=== PATIENT | female | born 1965 | race Caucasian/White ===

== ENCOUNTER 2017-01-08 22:38 | Inpatient (IN) | payer MEDICAID ==
[2017-01-08] MEDS ORDERED: Sodium Chloride 0.9% 1,000 ML IV ONE (23:38)
[2017-01-09] MEDS ORDERED: Sodium Chloride 0.9% 1,000 ML ONE ×2 (00:19→01:18)
--- NOTE | 2017-01-09 00:26 | CT ---
EXAM: CT Head Without Intravenous Contrast CLINICAL HISTORY: 51 years old, female; Injury or trauma; Fall; Initial encounter; Abrasion; Head, generalized; Additional info: Fell, hit head TECHNIQUE: Axial computed tomography images of the head/brain without intravenous contrast. All CT scans at this facility use one or more dose reduction techniques, viz.: automated exposure control; ma/kV adjustment per patient size (including targeted exams where dose is matched to indication; i.e. head); or iterative reconstruction technique. COMPARISON: No relevant prior studies available. FINDINGS: Brain: Mild atrophy. No intracranial hemorrhage. No mass. No edema. Ventricles: Mildly dilated out of proportion to sulci. Bones/joints: No acute fracture. Degenerative changes of temporomandibular joints. Soft tissues: Unremarkable. Sinuses: No acute sinusitis. Mastoid air cells: No mastoid effusion. Orbits: Unremarkable as visualized. IMPRESSION: 1. No intracranial hemorrhage. 2. Mild hydrocephalus vs central atrophy, uncertain chronicity. Compare with prior examinations if available. 3. Incidental/non-acute findings are described above.
[2017-01-09 00:31] LABS: BASO % 0.2 % (0.0-2.0); EOS % 0.1 % (0.0-4.0); HEMATOCRIT 26.7 % (34.0-47.0); LYMPH # 1.3 K/uL (1.0-4.3); LYMPH % 14.8 % (20.0-40.0); MEAN CELL VOLUME 86.7 fL (81.0-99.0); MEAN CORPUSCULAR HEMOGLOBIN 28.1 pg (27.0-31.0); MEAN CORPUSCULAR HGB CONC 32.4 g/dL (33.0-37.0); MEAN PLATELET VOLUME 7.4 fL (7.2-11.7); MONO # 0.7 K/uL (0.0-0.8); MONO % 8.3 % (0.0-10.0); WHITE BLOOD COUNT 8.5 K/uL (4.8-10.8)
[2017-01-09 00:34] LABS: CHLORIDE 105 mmol/L (98-107); POTASSIUM 4.7 mmol/L (3.6-5.2); SODIUM 132 mmol/L (132-148)
[2017-01-09 00:36] LABS: ALB/GLOB RATIO 0.9 (1.0-2.1); AST/SGOT 13 U/L (14-36); BILIRUBIN,TOTAL 0.6 mg/dL (0.2-1.3); CARBON DIOXIDE 14 mmol/L (22-30); GFR AFRICAN-AMERICAN 57; TOTAL PROTEIN 6.9 g/dL (6.3-8.3)
[2017-01-09 00:38] LABS: ALKALINE PHOSPHATASE 150 U/L (38-126); ALT/SGPT 23 U/L (9-52); BLOOD UREA NITROGEN 34 mg/dL (7-17); CALCIUM 8.8 mg/dl (8.6-10.4)
[2017-01-09 00:49] LABS: VENOUS BLOOD GAS BASE EXCESS -8.4 mmol/L (0.0-2.0); VENOUS BLOOD GAS PCO2 39 mmHg (40-60); VENOUS BLOOD PH 7.27 (7.32-7.43)
--- NOTE | 2017-01-09 00:51 | C.PDOC ---
History Of Present Illness Pt fell in the [facility] at [facility] striking her head. - HPI Time Seen by Provider: 01/08/17 23:26 Chief Complaint (Nursing): Trauma History Per: Patient, EMS, Other ([facility] transfer papers) Injury Occurred (Timing): Just Before Arrival Location Of Injury: Posterior: Head Severity: Moderate Additional History Per: Prior Records Past Medical History Reviewed: Historical Data, Nursing Documentation, Vital Signs Vital Signs: Last Vital Signs Temp 98.1 F 01/08/17 22:59 Pulse 85 01/08/17 22:59 Resp 18 01/08/17 22:59 BP 149/74 01/08/17 22:59 Pulse Ox 97 01/09/17 00:52 - Medical History PMH: Anemia, Diabetes, HTN, Hyperlipidemia, Seizures Family History: States: Unknown Family Hx - Social History Hx Alcohol Use: No Hx Substance Use: No Review Of Systems Constitutional: Negative for: Fever Cardiovascular: Negative for: Chest Pain Respiratory: Positive for: Cough. Negative for: Shortness of Breath Gastrointestinal: Positive for: Abdominal Pain (suprapubic). Negative for: Vomiting Genitourinary: Negative for: Dysuria Musculoskeletal: Negative for: Neck Pain, Back Pain Skin: Negative for: Rash Neurological: Positive for: Headache. Negative for: Weakness, Numbness Physical Exam - Physical Exam Appears: No Acute Distress, Chronically Ill Skin: Warm, Dry Head: Other (Occipital contusion) Eye(s): bilateral: PERRL, EOMI Neck: Normal ROM, No Midline Cervical Tenderness, No Step Off Deformity, Supple Chest: Symmetrical, No Deformity Cardiovascular: Rhythm Regular Respiratory: Normal Breath Sounds, No Accessory Muscle Use Gastrointestinal/Abdominal: Soft, Tenderness (mild suprapubic), No Guarding, No Rebound Back: No CVA Tenderness, No Vertebral Tenderness Extremity: Normal ROM Neurological/Psych: Oriented x3, Normal Motor, Normal Sensation ED Course And Treatment - Laboratory Results Result Diagrams: 01/09/17 00:19 01/09/17 00:19 Lab Interpretation: Abnormal O2 Sat by Pulse Oximetry: 97 Pulse Ox Interpretation: Normal - Radiology CXR: Interpreted by Me, Viewed By Me CXR Interpretation: Yes: No Acute Disease - CT Scan/US CT head Other Rad Studies (CT/US): Read By Radiologist, Radiology Report Reviewed CT/US Interpretation: IMPRESSION: 1. No intracranial hemorrhage. 2. Mild hydrocephalus vs central atrophy, uncertain chronicity. Compare with. prior examinations if available. 3. Incidental/non-acute findings are described above. Progress - Interventions Interventions:: Observation, Intravenous fluid - Medications Administered Intravenous: Other (Insulin) - Data Reviewed Data Reviewed: Lab, Diagnostic imaging, Old records - Critical Care Citical Care: Excluding Proc Time Critical Care Time: 45 minutes - Continuity of Care Discussed patient case with:: Patient, ED Nurse Disposition - Disposition Disposition Time: 01:00 Condition: GUARDED Forms: [employer] (Estonian) - Clinical Impression Clinical Impression: Fall at [facility], Closed head injury, Hyperglycemia Physician Patient Turnover Patient Signed Over To: Cy Stokes Handoff Comments: to f/up U/A, and repeat VBG after IV fluids and insulin.
[2017-01-09 00:53] LABS: GLUCOSE,RANDOM 564 mg/dL (65-105)
[2017-01-09] MEDS ORDERED: (Novolin R) Insulin Human Regular 100 units/ml vial IV STA ×2 (00:53→03:12)
[2017-01-09] MEDS ORDERED: (Novolin R) Insulin Human Regular 100 units/ml vial ONE ×2 (01:00→03:17)
[2017-01-09] MEDS ORDERED: Sodium Chloride 0.9% 1,000 ML IV ONE ×2 (01:20→01:25)
[2017-01-09 02:56] LABS: ABG ALLEN TEST POSITIVE; DRAW SITE LT RADIAL
[2017-01-09] MEDS ORDERED: Sodium Chloride 0.45% 500ml 1,000 ML IV ONE (03:06)
[2017-01-09 03:10] LABS: RBC URINE 1 /hpf (0-3); URINE BACTERIA RARE (<OCC); URINE BILIRUBIN NEGATIVE (NEGATIVE); URINE COLOR Straw (YELLOW); URINE GLUCOSE (UA) 3+ mg/dL (Normal); URINE KETONE NEGATIVE (NEGATIVE); URINE LEUKOCYTE ESTERASE 1+ Leu/uL (Negative); URINE PROTEIN NEGATIVE (NEGATIVE); URINE UROBILINOGEN NORMAL mg/dL (0.2-1.0); WBC URINE 20 /hpf (0-5)
[2017-01-09] MEDS ORDERED: Insulin Human Regular 100 UNIT in Sodium Chloride 0.9% 99 ML IV SCH ×8 (03:15→22:00)
[2017-01-09] MEDS ORDERED: Sodium Chloride 0.45% 1,000 ML IV ONE (03:16)
[2017-01-09 03:36] LABS: CHLORIDE 107 mmol/L (98-107)
[2017-01-09 03:37] LABS: POTASSIUM 4.2 mmol/L (3.6-5.2); SODIUM 134 mmol/L (132-148)
[2017-01-09 03:38] LABS: URINE BLOOD NEGATIVE (NEGATIVE)
[2017-01-09 03:39] LABS: GFR AFRICAN-AMERICAN > 60
[2017-01-09 03:40] LABS: BLOOD UREA NITROGEN 30 mg/dL (7-17); CALCIUM 8.5 mg/dl (8.6-10.4)
[2017-01-09] MEDS ORDERED: Ciprofloxacin 400mg/200ml D5W 400 MG/200 ML BAG IVPB STA (03:41)
[2017-01-09 03:48] LABS: CARBON DIOXIDE 10 mmol/L (22-30); GLUCOSE,RANDOM 477 mg/dL (65-105)
[2017-01-09] MEDS ORDERED: Ciprofloxacin 400mg/200ml D5W 400 MG/200 ML BAG IVPB ONE (04:38)
--- NOTE | 2017-01-09 04:59 | CP.PCM.HP ---
History of Present Illness - History of Present Illness History of Present Illness: 51 yo F with a PMHx of DM, Anemia, HTN, Hyperlipidemia, Seizures, was brought in from [facility] due to fall in shower with closed head injury and sprained ankle. In ED patient was found to be in DKA. Patient is a very poor historian, baseline function unknown. She was very lethargic and kept closing her eyes every few seconds. Possible delerium secondary to DKA with waxing and waning mentation. ROS and history could not be obtained due to patients mental status. No prior records in chart. Present on Admission - Present on Admission Any Indicators Present on Admission: No Review of Systems - Review of Systems Systems not reviewed;Unavailable: Altered Mental Status Past Patient History - Past Social History Smoking Status: Never Smoked - CARDIAC Hx Hypertension: Yes - NEUROLOGICAL Hx Seizures: Yes - ENDOCRINE/METABOLIC Hx Diabetes Mellitus Type 1: Yes - HEMATOLOGICAL/ONCOLOGICAL Hx Anemia: Yes - PSYCHIATRIC Hx Substance Use: No - SURGICAL HISTORY Hx Surgeries: (UNKNOWN) - ANESTHESIA Hx Anesthesia: No Meds Allergies/Adverse Reactions: Allergies Allergy/AdvReac Type Severity Reaction Status Date / Time No Known Allergies Allergy Unverified 01/08/17 23:13 Physical Exam - Constitutional Appears: Unkempt, Confused - Head Exam Head Exam: ATRAUMATIC, NORMAL INSPECTION - Eye Exam Eye Exam: EOMI - ENT Exam ENT Exam: Mucous Membranes Moist - Respiratory Exam Respiratory Exam: Clear to Auscultation Bilateral, NORMAL BREATHING PATTERN. absent: Rales, Rhonchi, Wheezes - Cardiovascular Exam Cardiovascular Exam: REGULAR RHYTHM, +S1, +S2. absent: Bradycardia, Tachycardia , Systolic Murmur - GI/Abdominal Exam GI & Abdominal Exam: Normal Bowel Sounds, Soft. absent: Tenderness - Rectal Exam Rectal Exam: Deferred - Extremities Exam Extremities exam: Positive for: joint swelling, pedal pulses present Additional comments: swelling noted on lateral aspect of right ankle; no ecchymosis - Neurological Exam Neurological exam: Alert, Altered - Skin Skin Exam: Dry, Intact, Normal Color, Warm Results - Vital Signs Recent Vital Signs: Last Vital Signs Temp 98.7 F 01/09/17 03:04 Pulse 96 H 01/09/17 03:04 Resp 20 01/09/17 03:04 BP 156/57 H 01/09/17 03:04 Pulse Ox 98 01/09/17 03:04 - Labs Result Diagrams: 01/09/17 00:19 01/09/17 01:49 Labs: Laboratory Results - last 24 hr 01/08/17 01/08/17 01/08/17 00:30 23:17 23:39 WBC RBC Hgb Hct MCV MCH MCHC RDW Plt Count MPV Neut % (Auto) Lymph % (Auto) [place] % (Auto) Eos % (Auto) Baso % (Auto) Neut # Lymph # [place] # Eos # Baso # Puncture Site pCO2 pO2 52 HCO3 ABG pH ABG Total CO2 ABG Base Excess ABG Hemoglobin Parminder Test VBG pH 7.27 L VBG pCO2 39 L VBG HCO3 17.9 VBG Total CO2 19.1 L VBG O2 Sat (Calc) 90.4 H VBG Base Excess -8.4 L VBG Potassium 4.7 Sodium 131.0 L Chloride 104.0 Glucose 602 H* Lactate 0.6 L Liter Flow Blood Gas Comments Glu 602 Crit Value Called To Allyson horowitz er Crit Value Called By Jonah villanueva Crit Value Read Back Y Blood Gas Notified Time 48 Potassium Carbon Dioxide Anion Gap BUN Creatinine Est GFR ( Amer) Est GFR (Non-Af Amer) POC Glucose (mg/dL) 485 H* Random Glucose Calcium Total Bilirubin AST ALT Alkaline Phosphatase Total Protein Albumin Globulin Albumin/Globulin Ratio Venous Blood Potassium 4.7 Urine Color Straw Urine Clarity Clear Urine pH 5.0 Ur Specific [place] 1.006 Urine Protein Negative Urine Glucose (UA) 3+ H Urine Ketones Negative Urine Blood Negative Urine Nitrate Negative Urine Bilirubin Negative Urine Urobilinogen Normal Ur Leukocyte Esterase 1+ H Urine WBC (Auto) 20 H Urine RBC (Auto) 1 Urine Bacteria Rare Serum Ketones 01/09/17 01/09/17 01/09/17 00:19 00:19 01:36 WBC 8.5 RBC 3.08 L Hgb 8.7 L Hct 26.7 L MCV 86.7 MCH 28.1 MCHC 32.4 L RDW 17.0 H Plt Count 290 MPV 7.4 Neut % (Auto) 76.6 H Lymph % (Auto) 14.8 L [place] % (Auto) 8.3 Eos % (Auto) 0.1 Baso % (Auto) 0.2 Neut # 6.5 Lymph # 1.3 [place] # 0.7 Eos # 0.0 Baso # 0.0 Puncture Site pCO2 pO2 HCO3 ABG pH ABG Total CO2 ABG Base Excess ABG Hemoglobin Parminder Test VBG pH VBG pCO2 VBG HCO3 VBG Total CO2 VBG O2 Sat (Calc) VBG Base Excess VBG Potassium Sodium 132 Chloride 105 Glucose Lactate Liter Flow Blood Gas Comments Crit Value Called To Crit Value Called By Crit Value Read Back Blood Gas Notified Time Potassium 4.7 Carbon Dioxide 14 L Anion Gap 18 BUN 34 H Creatinine 1.2 Est GFR ( Amer) 57 Est GFR (Non-Af Amer) 47 POC Glucose (mg/dL) 443 H* Random Glucose 564 H* Calcium 8.8 Total Bilirubin 0.6 AST 13 L ALT 23 Alkaline Phosphatase 150 H Total Protein 6.9 Albumin 3.2 L Globulin 3.7 Albumin/Globulin Ratio 0.9 L Venous Blood Potassium Urine Color Urine Clarity Urine pH Ur Specific [place] Urine Protein Urine Glucose (UA) Urine Ketones Urine Blood Urine Nitrate Urine Bilirubin Urine Urobilinogen Ur Leukocyte Esterase Urine WBC (Auto) Urine RBC (Auto) Urine Bacteria Serum Ketones Moderate 01/09/17 01/09/17 01/09/17 01:49 02:40 03:06 WBC RBC Hgb Hct MCV MCH MCHC RDW Plt Count MPV Neut % (Auto) Lymph % (Auto) [place] % (Auto) Eos % (Auto) Baso % (Auto) Neut # Lymph # [place] # Eos # Baso # Puncture Site Lt radial pCO2 10 L* pO2 162 H HCO3 8.8 L* ABG pH 7.22 L ABG Total CO2 4.4 L ABG Base Excess -20.7 L ABG Hemoglobin < 3.0 L Parminder Test Positive VBG pH VBG pCO2 VBG HCO3 VBG Total CO2 VBG O2 Sat (Calc) VBG Base Excess VBG Potassium Sodium 134 Chloride 107 Glucose Lactate Liter Flow 21.0 Blood Gas Comments Pco2 10 Crit Value Called To Allyson horowitz er Crit Value Called By Jonah villanueva Crit Value Read Back Y Blood Gas Notified Time 255 Potassium 4.2 Carbon Dioxide 10 L* D Anion Gap 21 H BUN 30 H Creatinine 1.0 Est GFR ( Amer) > 60 Est GFR (Non-Af Amer) 58 POC Glucose (mg/dL) 459 H* Random Glucose 477 H* Calcium 8.5 L Total Bilirubin AST ALT Alkaline Phosphatase Total Protein Albumin Globulin Albumin/Globulin Ratio Venous Blood Potassium Urine Color Urine Clarity Urine pH Ur Specific [place] Urine Protein Urine Glucose (UA) Urine Ketones Urine Blood Urine Nitrate Urine Bilirubin Urine Urobilinogen Ur Leukocyte Esterase Urine WBC (Auto) Urine RBC (Auto) Urine Bacteria Serum Ketones 01/09/17 04:13 WBC RBC Hgb Hct MCV MCH MCHC RDW Plt Count MPV Neut % (Auto) Lymph % (Auto) [place] % (Auto) Eos % (Auto) Baso % (Auto) Neut # Lymph # [place] # Eos # Baso # Puncture Site pCO2 pO2 HCO3 ABG pH ABG Total CO2 ABG Base Excess ABG Hemoglobin Parminder Test VBG pH VBG pCO2 VBG HCO3 VBG Total CO2 VBG O2 Sat (Calc) VBG Base Excess VBG Potassium Sodium Chloride Glucose Lactate Liter Flow Blood Gas Comments Crit Value Called To Crit Value Called By Crit Value Read Back Blood Gas Notified Time Potassium Carbon Dioxide Anion Gap BUN Creatinine Est GFR ( Amer) Est GFR (Non-Af Amer) POC Glucose (mg/dL) 391 H Random Glucose Calcium Total Bilirubin AST ALT Alkaline Phosphatase Total Protein Albumin Globulin Albumin/Globulin Ratio Venous Blood Potassium Urine Color Urine Clarity Urine pH Ur Specific [place] Urine Protein Urine Glucose (UA) Urine Ketones Urine Blood Urine Nitrate Urine Bilirubin Urine Urobilinogen Ur Leukocyte Esterase Urine WBC (Auto) Urine RBC (Auto) Urine Bacteria Serum Ketones Assessment & Plan (1) DKA (diabetic ketoacidosis) Assessment and Plan: glucose 602 on admission; anion gap 17; pH 7.22; HCO3 8.8; precipitant currently unknown In ED Novolin 16u, Potassium 20 meq, Normal Saline 2L given Insulin drip started Half NS at 500 cc/hr started Ciprofloxacin 400mg ivpb once; F/U urine culture accucheck keep NPO until anion gap and glucose trend toward normal Status: Acute (2) Closed head injury Assessment and Plan: CT Head shows No intracranial hemorrhage Status: Acute (3) Prophylactic measure Assessment and Plan: GI: not indicated DVT: SCDs, will hold off on anticoagulation for now due to head trauma Status: Acute
--- NOTE | 2017-01-09 05:14 | CP.PCM.CON ---
History of Present Illness - History of Present Illness History of Present Illness: CCM 51 yo female [facility] with hx DM /HTN/HLD /Seizures /Anemia sent to ED after fall with head trauma. Pt found to be in DKA in ED and started on IV fluid and insulin. Pt was admitting weakness. Denied n /v /d /fever /sob/urinary sx. Feeling sl. better when seen in ED. ROS- as noted All- NKDA social- no tob/ etoh/ drugs Meds- reviewed FH- Unknown PE T- 94 P- 94 R-22 BP-153/79 Awake, responisve, nad Perrl Neck- no jvdlugns- bilat bs heawrt-rr aBd- bs+, sfot, nontender Ext- no edema Neuro- nonfocal Labs, [id number] A&P DKA DM Anemia HTN Seizures Anemia RA ? Thyroid Dz Admit to ICU Cont IV fluid cont IV insulin drip maintain optimal lyts CBG monitoring F/u BMP /labs DVT prophylaxis Past Patient History - Past Social History Smoking Status: Never Smoked - CARDIAC Hx Hypertension: Yes - NEUROLOGICAL Hx Seizures: Yes - ENDOCRINE/METABOLIC Hx Diabetes Mellitus Type 1: Yes - HEMATOLOGICAL/ONCOLOGICAL Hx Anemia: Yes - PSYCHIATRIC Hx Substance Use: No - SURGICAL HISTORY Hx Surgeries: (UNKNOWN) - ANESTHESIA Hx Anesthesia: No Meds Allergies/Adverse Reactions: Allergies Allergy/AdvReac Type Severity Reaction Status Date / Time No Known Allergies Allergy Unverified 01/08/17 23:13 - Medications Medications: Current Medications Insulin Human Regular 100 unit (/ Sodium Chloride) 100 mls @ 6 mls/hr IV .[id number] ISAI Last Admin: 01/09/17 04:20 Dose: 6 mls/hr Ciprofloxacin (Cipro 400mg/200ml Dsw) 400 mg in 200 mls @ 133.333 mls/hr IVPB STAT STA Stop: 01/09/17 05:10 Results - Vital Signs Recent Vital Signs: Last Vital Signs Temp 98.3 F 01/09/17 04:56 Pulse 98 H 01/09/17 04:51 Resp 21 01/09/17 04:51 BP 153/79 H 01/09/17 04:51 Pulse Ox 100 01/09/17 04:51 - Labs Result Diagrams: 01/09/17 00:19 01/09/17 01:49 Labs: Laboratory Results - last 24 hr 01/08/17 01/08/17 01/08/17 00:30 23:17 23:39 WBC RBC Hgb Hct MCV MCH MCHC RDW Plt Count MPV Neut % (Auto) Lymph % (Auto) [place] % (Auto) Eos % (Auto) Baso % (Auto) Neut # Lymph # [place] # Eos # Baso # Puncture Site pCO2 pO2 52 HCO3 ABG pH ABG Total CO2 ABG Base Excess ABG Hemoglobin Parminder Test VBG pH 7.27 L VBG pCO2 39 L VBG HCO3 17.9 VBG Total CO2 19.1 L VBG O2 Sat (Calc) 90.4 H VBG Base Excess -8.4 L VBG Potassium 4.7 Sodium 131.0 L Chloride 104.0 Glucose 602 H* Lactate 0.6 L Liter Flow Blood Gas Comments Glu 602 Crit Value Called To Allyson horowitz er Crit Value Called By Jonah villanueva Crit Value Read Back Y Blood Gas Notified Time 48 Potassium Carbon Dioxide Anion Gap BUN Creatinine Est GFR ( Amer) Est GFR (Non-Af Amer) POC Glucose (mg/dL) 485 H* Random Glucose Calcium Total Bilirubin AST ALT Alkaline Phosphatase Total Protein Albumin Globulin Albumin/Globulin Ratio Venous Blood Potassium 4.7 Urine Color Straw Urine Clarity Clear Urine pH 5.0 Ur Specific [place] 1.006 Urine Protein Negative Urine Glucose (UA) 3+ H Urine Ketones Negative Urine Blood Negative Urine Nitrate Negative Urine Bilirubin Negative Urine Urobilinogen Normal Ur Leukocyte Esterase 1+ H Urine WBC (Auto) 20 H Urine RBC (Auto) 1 Urine Bacteria Rare Serum Ketones 01/09/17 01/09/17 01/09/17 00:19 00:19 01:36 WBC 8.5 RBC 3.08 L Hgb 8.7 L Hct 26.7 L MCV 86.7 MCH 28.1 MCHC 32.4 L RDW 17.0 H Plt Count 290 MPV 7.4 Neut % (Auto) 76.6 H Lymph % (Auto) 14.8 L [place] % (Auto) 8.3 Eos % (Auto) 0.1 Baso % (Auto) 0.2 Neut # 6.5 Lymph # 1.3 [place] # 0.7 Eos # 0.0 Baso # 0.0 Puncture Site pCO2 pO2 HCO3 ABG pH ABG Total CO2 ABG Base Excess ABG Hemoglobin Parminder Test VBG pH VBG pCO2 VBG HCO3 VBG Total CO2 VBG O2 Sat (Calc) VBG Base Excess VBG Potassium Sodium 132 Chloride 105 Glucose Lactate Liter Flow Blood Gas Comments Crit Value Called To Crit Value Called By Crit Value Read Back Blood Gas Notified Time Potassium 4.7 Carbon Dioxide 14 L Anion Gap 18 BUN 34 H Creatinine 1.2 Est GFR ( Amer) 57 Est GFR (Non-Af Amer) 47 POC Glucose (mg/dL) 443 H* Random Glucose 564 H* Calcium 8.8 Total Bilirubin 0.6 AST 13 L ALT 23 Alkaline Phosphatase 150 H Total Protein 6.9 Albumin 3.2 L Globulin 3.7 Albumin/Globulin Ratio 0.9 L Venous Blood Potassium Urine Color Urine Clarity Urine pH Ur Specific [place] Urine Protein Urine Glucose (UA) Urine Ketones Urine Blood Urine Nitrate Urine Bilirubin Urine Urobilinogen Ur Leukocyte Esterase Urine WBC (Auto) Urine RBC (Auto) Urine Bacteria Serum Ketones Moderate 01/09/17 01/09/17 01/09/17 01:49 02:40 03:06 WBC RBC Hgb Hct MCV MCH MCHC RDW Plt Count MPV Neut % (Auto) Lymph % (Auto) [place] % (Auto) Eos % (Auto) Baso % (Auto) Neut # Lymph # [place] # Eos # Baso # Puncture Site Lt radial pCO2 10 L* pO2 162 H HCO3 8.8 L* ABG pH 7.22 L ABG Total CO2 4.4 L ABG Base Excess -20.7 L ABG Hemoglobin < 3.0 L Parminder Test Positive VBG pH VBG pCO2 VBG HCO3 VBG Total CO2 VBG O2 Sat (Calc) VBG Base Excess VBG Potassium Sodium 134 Chloride 107 Glucose Lactate Liter Flow 21.0 Blood Gas Comments Pco2 10 Crit Value Called To Allyson horowitz er Crit Value Called By Jonah villanueva Crit Value Read Back Y Blood Gas Notified Time 255 Potassium 4.2 Carbon Dioxide 10 L* D Anion Gap 21 H BUN 30 H Creatinine 1.0 Est GFR ( Amer) > 60 Est GFR (Non-Af Amer) 58 POC Glucose (mg/dL) 459 H* Random Glucose 477 H* Calcium 8.5 L Total Bilirubin AST ALT Alkaline Phosphatase Total Protein Albumin Globulin Albumin/Globulin Ratio Venous Blood Potassium Urine Color Urine Clarity Urine pH Ur Specific [place] Urine Protein Urine Glucose (UA) Urine Ketones Urine Blood Urine Nitrate Urine Bilirubin Urine Urobilinogen Ur Leukocyte Esterase Urine WBC (Auto) Urine RBC (Auto) Urine Bacteria Serum Ketones 01/09/17 01/09/17 04:13 04:55 WBC RBC Hgb Hct MCV MCH MCHC RDW Plt Count MPV Neut % (Auto) Lymph % (Auto) [place] % (Auto) Eos % (Auto) Baso % (Auto) Neut # Lymph # [place] # Eos # Baso # Puncture Site pCO2 pO2 HCO3 ABG pH ABG Total CO2 ABG Base Excess ABG Hemoglobin Parminder Test VBG pH VBG pCO2 VBG HCO3 VBG Total CO2 VBG O2 Sat (Calc) VBG Base Excess VBG Potassium Sodium Chloride Glucose Lactate Liter Flow Blood Gas Comments Crit Value Called To Crit Value Called By Crit Value Read Back Blood Gas Notified Time Potassium Carbon Dioxide Anion Gap BUN Creatinine Est GFR ( Amer) Est GFR (Non-Af Amer) POC Glucose (mg/dL) 391 H 326 H Random Glucose Calcium Total Bilirubin AST ALT Alkaline Phosphatase Total Protein Albumin Globulin Albumin/Globulin Ratio Venous Blood Potassium Urine Color Urine Clarity Urine pH Ur Specific [place] Urine Protein Urine Glucose (UA) Urine Ketones Urine Blood Urine Nitrate Urine Bilirubin Urine Urobilinogen Ur Leukocyte Esterase Urine WBC (Auto) Urine RBC (Auto) Urine Bacteria Serum Ketones
[2017-01-09] MEDS ORDERED: Sodium Chloride 0.45% 1,000 ML IV SCH (05:30)
[2017-01-09] MEDS ORDERED: Dextrose 5%/0.45% NS 1,000 ML IV SCH (06:30)
[2017-01-09 07:43] LABS: BASO % 0.3 % (0.0-2.0); EOS % 0.1 % (0.0-4.0); HEMATOCRIT 28.4 % (34.0-47.0); LYMPH # 1.4 K/uL (1.0-4.3); LYMPH % 12.3 % (20.0-40.0); MEAN CELL VOLUME 85.5 fL (81.0-99.0); MEAN CORPUSCULAR HEMOGLOBIN 27.9 pg (27.0-31.0); MEAN CORPUSCULAR HGB CONC 32.7 g/dL (33.0-37.0); MEAN PLATELET VOLUME 7.6 fL (7.2-11.7); MONO # 0.7 K/uL (0.0-0.8); MONO % 6.1 % (0.0-10.0); RED CELL DISTRIBUTION WIDTH 16.6 % (11.5-14.5); WHITE BLOOD COUNT 11.1 K/uL (4.8-10.8)
[2017-01-09 08:15] LABS: ALB/GLOB RATIO 0.9 (1.0-2.1); ALKALINE PHOSPHATASE 124 U/L (38-126); ALT/SGPT 15 U/L (9-52); AST/SGOT 16 U/L (14-36); BILIRUBIN,TOTAL 0.5 mg/dL (0.2-1.3); BLOOD UREA NITROGEN 27 mg/dL (7-17); CALCIUM 9.1 mg/dl (8.6-10.4); CARBON DIOXIDE 13 mmol/L (22-30); CHLORIDE 109 mmol/L (98-107); GFR AFRICAN-AMERICAN > 60; GLUCOSE,RANDOM 99 mg/dL (65-105); POTASSIUM 3.2 mmol/L (3.6-5.2); SODIUM 135 mmol/L (132-148); TOTAL PROTEIN 6.6 g/dL (6.3-8.3)
--- NOTE | 2017-01-09 08:25 | RAD ---
PROCEDURE: CHEST RADIOGRAPH, 1 VIEW HISTORY: Cough COMPARISON: None available. FINDINGS: LUNGS: Mild venous congestion. Upper lobe granulomatous changes. Mild nodularity at the lateral aspect of the left lung base may represent confluence of shadows with ribs and vessels. PLEURA: No pneumothorax or pleural fluid seen. CARDIOVASCULAR: Normal. OSSEOUS STRUCTURES: Deformity of the left proximal humerus. Clinical correlation. VISUALIZED UPPER ABDOMEN: Normal. OTHER FINDINGS: None. IMPRESSION: Mild venous congestion. Upper lobe granulomatous changes. Mild nodularity at the lateral aspect of the left lung base may represent confluence of shadows with ribs and vessels.
[2017-01-09] MEDS ORDERED: Potassium Chloride 20 mEq ER Tab PO SCH (11:00)
[2017-01-09] MEDS: Sodium Chloride 0.9% 1,000 ML IV SCH ×2 (11:25→13:15)
--- NOTE | 2017-01-09 14:14 | RAD ---
PROCEDURE: Left Hand Radiographs. HISTORY: s/p fall. Hx of RA COMPARISON: None. FINDINGS: BONES: Marked juxta-articular osteopenia. Multiple subcortical cyst. Metacarpal head erosions 2nd and 3rd most notably. Mild dorsal subluxation -metacarpal heads relative to proximal phalanges -consistent with rheumatoid arthrosis Second through 5th proximal and distal interphalangeal joint space narrowing with mild spurring tiny subcortical cysts here is well. Concomitant erosions here 2nd and 3rd proximal interphalangeal joint probable JOINTS: As above. Fifth digit boutonniere deformity SOFT TISSUES: Diffuse soft tissue swelling eccentric greater over the metacarpal heads OTHER FINDINGS: None. IMPRESSION: Juxta-articular osteopenia with cystic and erosive changes. Rheumatoid arthrosis suggested. No fracture
[2017-01-09] MEDS ORDERED: Midazolam 50 mg/10 ml 100 MG in Sodium Chloride 0.9% 80 ML IV SCH (14:15)
[2017-01-09] MEDS: Potassium Ch 20mEq in D5-1/2NS 1,000 ML IV SCH (16:48)
[2017-01-09 19:17] LABS: ABG ALLEN TEST POS; ARTERIAL BLOOD HGB O2 SAT 96.2 % (95.0-98.0); CARBOXYHEMOGLOBIN 1.4 % (0.5-1.5); DRAW SITE LRA; HHB 1.6 % (0.0-5.0); METHEMOGLOBIN 0.8 % (0.0-3.0)
[2017-01-09 19:30] LABS: CHLORIDE 113 mmol/L (98-107)
[2017-01-09 19:31] LABS: SODIUM 137 mmol/L (132-148)
[2017-01-09 19:33] LABS: ALB/GLOB RATIO 0.8 (1.0-2.1); ALKALINE PHOSPHATASE 136 U/L (38-126); ALT/SGPT 19 U/L (9-52); AST/SGOT 14 U/L (14-36); BILIRUBIN,TOTAL 0.5 mg/dL (0.2-1.3); BLOOD UREA NITROGEN 23 mg/dL (7-17); CARBON DIOXIDE 14 mmol/L (22-30); GFR AFRICAN-AMERICAN > 60; GLUCOSE,RANDOM 189 mg/dL (65-105); TOTAL PROTEIN 6.9 g/dL (6.3-8.3)
[2017-01-09 19:34] LABS: CALCIUM 9.1 mg/dl (8.6-10.4); MAGNESIUM 1.4 mg/dL (1.6-2.3)
[2017-01-10] MEDS: Potassium Ch 20mEq in D5-1/2NS 1,000 ML IV SCH (00:45)
[2017-01-10] MEDS: Oxycodone/Acetaminophen 5/325 mg Tab PO PRN ×3 (02:47→21:15)
[2017-01-10 06:16] LABS: BASO % 0.5 % (0.0-2.0); LYMPH # 1.7 K/uL (1.0-4.3); MONO # 0.7 K/uL (0.0-0.8)
[2017-01-10 06:37] LABS: CHLORIDE 109 mmol/L (98-107); SODIUM 137 mmol/L (132-148)
[2017-01-10 06:39] LABS: ALB/GLOB RATIO 0.8 (1.0-2.1); ALKALINE PHOSPHATASE 116 U/L (38-126); ALT/SGPT 20 U/L (9-52); AST/SGOT 30 U/L (14-36); BILIRUBIN,TOTAL 0.7 mg/dL (0.2-1.3); BLOOD UREA NITROGEN 20 mg/dL (7-17); CARBON DIOXIDE 13 mmol/L (22-30); GFR AFRICAN-AMERICAN > 60; TOTAL PROTEIN 6.9 g/dL (6.3-8.3)
[2017-01-10 06:40] LABS: CALCIUM 8.8 mg/dl (8.6-10.4); GLUCOSE,RANDOM 153 mg/dL (65-105); MAGNESIUM 1.4 mg/dL (1.6-2.3)
[2017-01-10 06:46] LABS: POTASSIUM 5.4 mmol/L (3.6-5.2)
[2017-01-10 07:09] LABS: EOS % 0.1 % (0.0-4.0); MEAN CELL VOLUME 85.3 fL (81.0-99.0); MEAN CORPUSCULAR HEMOGLOBIN 27.9 pg (27.0-31.0); MEAN CORPUSCULAR HGB CONC 32.7 g/dL (33.0-37.0); MEAN PLATELET VOLUME 8.1 fL (7.2-11.7); MONO % 7.5 % (0.0-10.0); NRBC % 0.2 % (0.0-2.0); RED CELL DISTRIBUTION WIDTH 17.4 % (11.5-14.5); WHITE BLOOD COUNT 9.6 K/uL (4.8-10.8)
--- NOTE | 2017-01-10 07:15 | CP.CCUPN ---
<JerzyLilichirag E - Last Filed: 01/10/17 16:49> CCU Subjective - Physician Review Subjective (Free Text): Patient was seen and examined at bedside. Patient reports leg pain and refused breakfast. Patient denied chest pain, SOB, nausea, vomiting, fever, chills and abdominal pain. CCU Objective - Vital Signs / Intake & Output Vital Signs (Last 4 hours): Vital Signs Temp Pulse Resp BP Pulse Ox 01/10/17 06:36 170/79 H 01/10/17 06:35 96 H 19 99 01/10/17 06:30 97 H 17 100 01/10/17 06:20 97 H 19 99 01/10/17 06:10 96 H 18 99 01/10/17 06:00 98 H 17 99 01/10/17 05:50 100 H 19 100 01/10/17 05:40 99 H 16 100 01/10/17 05:36 101 H 16 173/82 H 100 01/10/17 05:30 104 H 17 100 01/10/17 05:20 103 H 15 97 01/10/17 05:10 98 H 17 94 L 01/10/17 05:00 97 H 17 94 L 01/10/17 04:50 99 H 17 97 01/10/17 04:40 98 H 18 100 01/10/17 04:36 98 H 16 168/75 H 100 01/10/17 04:30 100 H 16 100 01/10/17 04:20 100 H 16 100 01/10/17 04:10 101 H 15 100 01/10/17 04:00 98.6 F 98 H 15 100 01/10/17 03:50 100 H 16 100 01/10/17 03:40 105 H 18 01/10/17 03:37 112 H 20 159/77 H 92 L 01/10/17 03:30 106 H 17 100 01/10/17 03:20 105 H 17 100 Intake and Output (Last 8hrs): Intake & Output 01/09/17 01/10/17 01/10/17 22:59 06:59 14:59 Intake Total 1360 1036 127 Output Total 560 900 500 Balance 800 136 -373 Weight 133 lb 4.8 oz Intake: IV 74 14 Intake, IV Amount 1046 1022 127 right hand #! port 1025 1000 125 right hand #2 21 22 2 Oral 240 Output: Urine 560 900 500 Urethral ([place]) 560 900 500 - Physical Exam Head: Positive for: Atraumatic, Normocephalic Extroacular Muscles: Positive for: EOMI Respiratory/Chest: Positive for: Clear to Auscultation Cardiovascular: Positive for: Regular Rate and Rhythm, Normal S1, S2 Abdomen: Positive for: Normal Bowel Sounds. Negative for: Tenderness, Distention Lower Extremity: Positive for: Swelling (B/L mild swelling ) Neurological: Positive for: GCS=15 Skin: Positive for: Warm Psychiatric: Positive for: Alert, Oriented x 3 - Medications Active Medications: Active Medications Generic Name Dose Route Start Last Admin Trade Name Freq PRN Reason Stop Dose Admin Acetaminophen 650 mg 01/09/17 21:01 01/09/17 22:59 Tylenol 325mg Tab PO 650 mg Q6 PRN Administration Pain, moderate (4-7) Heparin Sodium (Porcine) 5,000 units 01/09/17 06:00 01/10/17 06:49 Heparin SC 5,000 units Q8 ISAI Administration Potassium Chloride/Dextrose/Sod Cl 1,000 mls @ 125 mls/hr 01/09/17 16:30 00:45 Potassium Chl 20 Meq In D5-1/2ns IV 125 mls/hr .Q8H ISAI Administration Insulin Human Regular 100 unit 100 mls @ 2 mls/hr 01/09/17 22:00 01/10/17 02: 01 / Sodium Chloride IV 2 units/hr .Q24H ISAI 2 mls/hr Protocol Titration Oxycodone/Acetaminophen 1 tab 01/10/17 02:37 01/10/17 02:47 Percocet 5/325 Mg Tab PO 01/13/17 02:38 1 tab Q6H PRN Administration Pain, moderate (4-7) Potassium Chloride 40 meq 01/09/17 11:00 01/09/17 12:11 K-Dur 20 Meq Er Tab PO 40 meq DAILY ISAI Administration - Patient Studies Lab Studies: Lab Studies 01/10/17 01/10/17 01/10/17 Range/Units 06:08 03:56 02:42 WBC (4.8-10.8) K/uL RBC (3.80-5.20) Mil/uL Hgb (11.0-16.0) g/dL Hct (34.0-47.0) % MCV (81.0-99.0) fL MCH (27.0-31.0) pg MCHC (33.0-37.0) g/dL RDW (11.5-14.5) % Plt Count (130-400) K/uL MPV (7.2-11.7) fL Neut % (Auto) (50.0-75.0) % Lymph % (Auto) (20.0-40.0) % [place] % (Auto) (0.0-10.0) % Eos % (Auto) (0.0-4.0) % Baso % (Auto) (0.0-2.0) % Neut # (1.8-7.0) K/uL Lymph # (1.0-4.3) K/uL [place] # (0.0-0.8) K/uL Eos # (0.0-0.7) K/uL Baso # (0.0-0.2) K/uL Puncture Site pCO2 (35-45) mm/Hg pO2 (80-100) mm/Hg HCO3 (21-28) mmol/L ABG pH (7.35-7.45) ABG Total CO2 (22-28) mmol/L ABG O2 Saturation (95-98) % ABG Base Excess (-2.0-3.0) mmol/L ABG Hemoglobin (11.7-17.4) g/dL ABG Carboxyhemoglobin (0.5-1.5) % POC ABG HHb (Measured) (0.0-5.0) % ABG Methemoglobin (0.0-3.0) % Parminder Test Hgb O2 Saturation (95.0-98.0) % Sodium 137 (132-148) mmol/L Potassium 5.4 H (3.6-5.2) mmol/L Chloride 109 H (98-107) mmol/L Carbon Dioxide 13 L (22-30) mmol/L Anion Gap 20 (10-20) BUN 20 H (7-17) mg/dL Creatinine 1.0 (0.7-1.2) MG/DL Est GFR ( Amer) > 60 Est GFR (Non-Af Amer) 58 POC Glucose (mg/dL) 243 H 168 H (65-110) mg/dL Random Glucose 153 H (65-105) mg/dL Hemoglobin A1c (4.2-6.5) % Calcium 8.8 (8.6-10.4) mg/dl Phosphorus 3.0 (2.5-4.5) mg/dL Magnesium 1.4 L (1.6-2.3) mg/dL Total Bilirubin 0.7 (0.2-1.3) mg/dL AST 30 (14-36) U/L ALT 20 (9-52) U/L Alkaline Phosphatase 116 (38-126) U/L Total Creatine Kinase (30-135) U/L CK-MB (Mass) (0.0-3.38) ng/mL Troponin I, Quant (0.00-0.120) ng/mL Total Protein 6.9 (6.3-8.3) g/dL Albumin 3.1 L (3.5-5.0) g/dL Globulin 3.8 (2.2-3.9) gm/dL Albumin/Globulin Ratio 0.8 L (1.0-2.1) 01/10/17 01/10/17 01/09/17 Range/Units 01:18 00:04 22:12 WBC (4.8-10.8) K/uL RBC (3.80-5.20) Mil/uL Hgb (11.0-16.0) g/dL Hct (34.0-47.0) % MCV (81.0-99.0) fL MCH (27.0-31.0) pg MCHC (33.0-37.0) g/dL RDW (11.5-14.5) % Plt Count (130-400) K/uL MPV (7.2-11.7) fL Neut % (Auto) (50.0-75.0) % Lymph % (Auto) (20.0-40.0) % [place] % (Auto) (0.0-10.0) % Eos % (Auto) (0.0-4.0) % Baso % (Auto) (0.0-2.0) % Neut # (1.8-7.0) K/uL Lymph # (1.0-4.3) K/uL [place] # (0.0-0.8) K/uL Eos # (0.0-0.7) K/uL Baso # (0.0-0.2) K/uL Puncture Site pCO2 (35-45) mm/Hg pO2 (80-100) mm/Hg HCO3 (21-28) mmol/L ABG pH (7.35-7.45) ABG Total CO2 (22-28) mmol/L ABG O2 Saturation (95-98) % ABG Base Excess (-2.0-3.0) mmol/L ABG Hemoglobin (11.7-17.4) g/dL ABG Carboxyhemoglobin (0.5-1.5) % POC ABG HHb (Measured) (0.0-5.0) % ABG Methemoglobin (0.0-3.0) % Parminder Test Hgb O2 Saturation (95.0-98.0) % Sodium (132-148) mmol/L Potassium (3.6-5.2) mmol/L Chloride (98-107) mmol/L Carbon Dioxide (22-30) mmol/L Anion Gap (10-20) BUN (7-17) mg/dL Creatinine (0.7-1.2) MG/DL Est GFR ( Amer) Est GFR (Non-Af Amer) POC Glucose (mg/dL) 89 150 H 310 H (65-110) mg/dL Random Glucose (65-105) mg/dL Hemoglobin A1c (4.2-6.5) % Calcium (8.6-10.4) mg/dl Phosphorus (2.5-4.5) mg/dL Magnesium (1.6-2.3) mg/dL Total Bilirubin (0.2-1.3) mg/dL AST (14-36) U/L ALT (9-52) U/L Alkaline Phosphatase (38-126) U/L Total Creatine Kinase (30-135) U/L CK-MB (Mass) (0.0-3.38) ng/mL Troponin I, Quant (0.00-0.120) ng/mL Total Protein (6.3-8.3) g/dL Albumin (3.5-5.0) g/dL Globulin (2.2-3.9) gm/dL Albumin/Globulin Ratio (1.0-2.1) 01/09/17 01/09/17 01/09/17 Range/Units 21:06 20:18 19:35 WBC (4.8-10.8) K/uL RBC (3.80-5.20) Mil/uL Hgb (11.0-16.0) g/dL Hct (34.0-47.0) % MCV (81.0-99.0) fL MCH (27.0-31.0) pg MCHC (33.0-37.0) g/dL RDW (11.5-14.5) % Plt Count (130-400) K/uL MPV (7.2-11.7) fL Neut % (Auto) (50.0-75.0) % Lymph % (Auto) (20.0-40.0) % [place] % (Auto) (0.0-10.0) % Eos % (Auto) (0.0-4.0) % Baso % (Auto) (0.0-2.0) % Neut # (1.8-7.0) K/uL Lymph # (1.0-4.3) K/uL [place] # (0.0-0.8) K/uL Eos # (0.0-0.7) K/uL Baso # (0.0-0.2) K/uL Puncture Site pCO2 (35-45) mm/Hg pO2 (80-100) mm/Hg HCO3 (21-28) mmol/L ABG pH (7.35-7.45) ABG Total CO2 (22-28) mmol/L ABG O2 Saturation (95-98) % ABG Base Excess (-2.0-3.0) mmol/L ABG Hemoglobin (11.7-17.4) g/dL ABG Carboxyhemoglobin (0.5-1.5) % POC ABG HHb (Measured) (0.0-5.0) % ABG Methemoglobin (0.0-3.0) % Parminder Test Hgb O2 Saturation (95.0-98.0) % Sodium (132-148) mmol/L Potassium (3.6-5.2) mmol/L Chloride (98-107) mmol/L Carbon Dioxide (22-30) mmol/L Anion Gap (10-20) BUN (7-17) mg/dL Creatinine (0.7-1.2) MG/DL Est GFR ( Amer) Est GFR (Non-Af Amer) POC Glucose (mg/dL) 289 H 287 H 228 H (65-110) mg/dL Random Glucose (65-105) mg/dL Hemoglobin A1c (4.2-6.5) % Calcium (8.6-10.4) mg/dl Phosphorus (2.5-4.5) mg/dL Magnesium (1.6-2.3) mg/dL Total Bilirubin (0.2-1.3) mg/dL AST (14-36) U/L ALT (9-52) U/L Alkaline Phosphatase (38-126) U/L Total Creatine Kinase (30-135) U/L CK-MB (Mass) (0.0-3.38) ng/mL Troponin I, Quant (0.00-0.120) ng/mL Total Protein (6.3-8.3) g/dL Albumin (3.5-5.0) g/dL Globulin (2.2-3.9) gm/dL Albumin/Globulin Ratio (1.0-2.1) 01/09/17 01/09/17 01/09/17 Range/Units 19:15 19:15 19:10 WBC (4.8-10.8) K/uL RBC (3.80-5.20) Mil/uL Hgb (11.0-16.0) g/dL Hct (34.0-47.0) % MCV (81.0-99.0) fL MCH (27.0-31.0) pg MCHC (33.0-37.0) g/dL RDW (11.5-14.5) % Plt Count (130-400) K/uL MPV (7.2-11.7) fL Neut % (Auto) (50.0-75.0) % Lymph % (Auto) (20.0-40.0) % [place] % (Auto) (0.0-10.0) % Eos % (Auto) (0.0-4.0) % Baso % (Auto) (0.0-2.0) % Neut # (1.8-7.0) K/uL Lymph # (1.0-4.3) K/uL [place] # (0.0-0.8) K/uL Eos # (0.0-0.7) K/uL Baso # (0.0-0.2) K/uL Puncture Site Lra pCO2 25 L (35-45) mm/Hg pO2 96 (80-100) mm/Hg HCO3 15.0 L (21-28) mmol/L ABG pH 7.30 L (7.35-7.45) ABG Total CO2 13.1 L (22-28) mmol/L ABG O2 Saturation 98.4 H (95-98) % ABG Base Excess -12.8 L (-2.0-3.0) mmol/L ABG Hemoglobin 7.5 L (11.7-17.4) g/dL ABG Carboxyhemoglobin 1.4 (0.5-1.5) % POC ABG HHb (Measured) 1.6 (0.0-5.0) % ABG Methemoglobin 0.8 (0.0-3.0) % Parminder Test Pos Hgb O2 Saturation 96.2 (95.0-98.0) % Sodium 137 (132-148) mmol/L Potassium 5.0 (3.6-5.2) mmol/L Chloride 113 H (98-107) mmol/L Carbon Dioxide 14 L (22-30) mmol/L Anion Gap 15 (10-20) BUN 23 H (7-17) mg/dL Creatinine 1.0 (0.7-1.2) MG/DL Est GFR ( Amer) > 60 Est GFR (Non-Af Amer) 58 POC Glucose (mg/dL) (65-110) mg/dL Random Glucose 189 H (65-105) mg/dL Hemoglobin A1c 9.1 H (4.2-6.5) % Calcium 9.1 (8.6-10.4) mg/dl Phosphorus 3.0 (2.5-4.5) mg/dL Magnesium 1.4 L (1.6-2.3) mg/dL Total Bilirubin 0.5 (0.2-1.3) mg/dL AST 14 (14-36) U/L ALT 19 (9-52) U/L Alkaline Phosphatase 136 H (38-126) U/L Total Creatine Kinase < 20 L (30-135) U/L CK-MB (Mass) 0.82 (0.0-3.38) ng/mL Troponin I, Quant 0.0280 (0.00-0.120) ng/mL Total Protein 6.9 (6.3-8.3) g/dL Albumin 3.2 L (3.5-5.0) g/dL Globulin 3.8 (2.2-3.9) gm/dL Albumin/Globulin Ratio 0.8 L (1.0-2.1) 01/09/17 01/09/17 01/09/17 Range/Units 18:11 17:39 17:10 WBC (4.8-10.8) K/uL RBC (3.80-5.20) Mil/uL Hgb (11.0-16.0) g/dL Hct (34.0-47.0) % MCV (81.0-99.0) fL MCH (27.0-31.0) pg MCHC (33.0-37.0) g/dL RDW (11.5-14.5) % Plt Count (130-400) K/uL MPV (7.2-11.7) fL Neut % (Auto) (50.0-75.0) % Lymph % (Auto) (20.0-40.0) % [place] % (Auto) (0.0-10.0) % Eos % (Auto) (0.0-4.0) % Baso % (Auto) (0.0-2.0) % Neut # (1.8-7.0) K/uL Lymph # (1.0-4.3) K/uL [place] # (0.0-0.8) K/uL Eos # (0.0-0.7) K/uL Baso # (0.0-0.2) K/uL Puncture Site pCO2 (35-45) mm/Hg pO2 (80-100) mm/Hg HCO3 (21-28) mmol/L ABG pH (7.35-7.45) ABG Total CO2 (22-28) mmol/L ABG O2 Saturation (95-98) % ABG Base Excess (-2.0-3.0) mmol/L ABG Hemoglobin (11.7-17.4) g/dL ABG Carboxyhemoglobin (0.5-1.5) % POC ABG HHb (Measured) (0.0-5.0) % ABG Methemoglobin (0.0-3.0) % Parminder Test Hgb O2 Saturation (95.0-98.0) % Sodium (132-148) mmol/L Potassium (3.6-5.2) mmol/L Chloride (98-107) mmol/L Carbon Dioxide (22-30) mmol/L Anion Gap (10-20) BUN (7-17) mg/dL Creatinine (0.7-1.2) MG/DL Est GFR ( Amer) Est GFR (Non-Af Amer) POC Glucose (mg/dL) 178 H 152 H 54 L (65-110) mg/dL Random Glucose (65-105) mg/dL Hemoglobin A1c (4.2-6.5) % Calcium (8.6-10.4) mg/dl Phosphorus (2.5-4.5) mg/dL Magnesium (1.6-2.3) mg/dL Total Bilirubin (0.2-1.3) mg/dL AST (14-36) U/L ALT (9-52) U/L Alkaline Phosphatase (38-126) U/L Total Creatine Kinase (30-135) U/L CK-MB (Mass) (0.0-3.38) ng/mL Troponin I, Quant (0.00-0.120) ng/mL Total Protein (6.3-8.3) g/dL Albumin (3.5-5.0) g/dL Globulin (2.2-3.9) gm/dL Albumin/Globulin Ratio (1.0-2.1) 01/09/17 01/09/17 01/09/17 Range/Units 16:13 15:34 13:58 WBC (4.8-10.8) K/uL RBC (3.80-5.20) Mil/uL Hgb (11.0-16.0) g/dL Hct (34.0-47.0) % MCV (81.0-99.0) fL MCH (27.0-31.0) pg MCHC (33.0-37.0) g/dL RDW (11.5-14.5) % Plt Count (130-400) K/uL MPV (7.2-11.7) fL Neut % (Auto) (50.0-75.0) % Lymph % (Auto) (20.0-40.0) % [place] % (Auto) (0.0-10.0) % Eos % (Auto) (0.0-4.0) % Baso % (Auto) (0.0-2.0) % Neut # (1.8-7.0) K/uL Lymph # (1.0-4.3) K/uL [place] # (0.0-0.8) K/uL Eos # (0.0-0.7) K/uL Baso # (0.0-0.2) K/uL Puncture Site pCO2 (35-45) mm/Hg pO2 (80-100) mm/Hg HCO3 (21-28) mmol/L ABG pH (7.35-7.45) ABG Total CO2 (22-28) mmol/L ABG O2 Saturation (95-98) % ABG Base Excess (-2.0-3.0) mmol/L ABG Hemoglobin (11.7-17.4) g/dL ABG Carboxyhemoglobin (0.5-1.5) % POC ABG HHb (Measured) (0.0-5.0) % ABG Methemoglobin (0.0-3.0) % Parminder Test Hgb O2 Saturation (95.0-98.0) % Sodium (132-148) mmol/L Potassium (3.6-5.2) mmol/L Chloride (98-107) mmol/L Carbon Dioxide (22-30) mmol/L Anion Gap (10-20) BUN (7-17) mg/dL Creatinine (0.7-1.2) MG/DL Est GFR ( Amer) Est GFR (Non-Af Amer) POC Glucose (mg/dL) 89 125 H 284 H (65-110) mg/dL Random Glucose (65-105) mg/dL Hemoglobin A1c (4.2-6.5) % Calcium (8.6-10.4) mg/dl Phosphorus (2.5-4.5) mg/dL Magnesium (1.6-2.3) mg/dL Total Bilirubin (0.2-1.3) mg/dL AST (14-36) U/L ALT (9-52) U/L Alkaline Phosphatase (38-126) U/L Total Creatine Kinase (30-135) U/L CK-MB (Mass) (0.0-3.38) ng/mL Troponin I, Quant (0.00-0.120) ng/mL Total Protein (6.3-8.3) g/dL Albumin (3.5-5.0) g/dL Globulin (2.2-3.9) gm/dL Albumin/Globulin Ratio (1.0-2.1) 01/09/17 01/09/17 01/09/17 Range/Units 13:20 12:11 11:14 WBC (4.8-10.8) K/uL RBC (3.80-5.20) Mil/uL Hgb (11.0-16.0) g/dL Hct (34.0-47.0) % MCV (81.0-99.0) fL MCH (27.0-31.0) pg MCHC (33.0-37.0) g/dL RDW (11.5-14.5) % Plt Count (130-400) K/uL MPV (7.2-11.7) fL Neut % (Auto) (50.0-75.0) % Lymph % (Auto) (20.0-40.0) % [place] % (Auto) (0.0-10.0) % Eos % (Auto) (0.0-4.0) % Baso % (Auto) (0.0-2.0) % Neut # (1.8-7.0) K/uL Lymph # (1.0-4.3) K/uL [place] # (0.0-0.8) K/uL Eos # (0.0-0.7) K/uL Baso # (0.0-0.2) K/uL Puncture Site pCO2 (35-45) mm/Hg pO2 (80-100) mm/Hg HCO3 (21-28) mmol/L ABG pH (7.35-7.45) ABG Total CO2 (22-28) mmol/L ABG O2 Saturation (95-98) % ABG Base Excess (-2.0-3.0) mmol/L ABG Hemoglobin (11.7-17.4) g/dL ABG Carboxyhemoglobin (0.5-1.5) % POC ABG HHb (Measured) (0.0-5.0) % ABG Methemoglobin (0.0-3.0) % Parminder Test Hgb O2 Saturation (95.0-98.0) % Sodium (132-148) mmol/L Potassium (3.6-5.2) mmol/L Chloride (98-107) mmol/L Carbon Dioxide (22-30) mmol/L Anion Gap (10-20) BUN (7-17) mg/dL Creatinine (0.7-1.2) MG/DL Est GFR ( Amer) Est GFR (Non-Af Amer) POC Glucose (mg/dL) 264 H 408 H* 359 H (65-110) mg/dL Random Glucose (65-105) mg/dL Hemoglobin A1c (4.2-6.5) % Calcium (8.6-10.4) mg/dl Phosphorus (2.5-4.5) mg/dL Magnesium (1.6-2.3) mg/dL Total Bilirubin (0.2-1.3) mg/dL AST (14-36) U/L ALT (9-52) U/L Alkaline Phosphatase (38-126) U/L Total Creatine Kinase (30-135) U/L CK-MB (Mass) (0.0-3.38) ng/mL Troponin I, Quant (0.00-0.120) ng/mL Total Protein (6.3-8.3) g/dL Albumin (3.5-5.0) g/dL Globulin (2.2-3.9) gm/dL Albumin/Globulin Ratio (1.0-2.1) 01/09/17 01/09/17 01/09/17 Range/Units 10:04 09:29 08:05 WBC (4.8-10.8) K/uL RBC (3.80-5.20) Mil/uL Hgb (11.0-16.0) g/dL Hct (34.0-47.0) % MCV (81.0-99.0) fL MCH (27.0-31.0) pg MCHC (33.0-37.0) g/dL RDW (11.5-14.5) % Plt Count (130-400) K/uL MPV (7.2-11.7) fL Neut % (Auto) (50.0-75.0) % Lymph % (Auto) (20.0-40.0) % [place] % (Auto) (0.0-10.0) % Eos % (Auto) (0.0-4.0) % Baso % (Auto) (0.0-2.0) % Neut # (1.8-7.0) K/uL Lymph # (1.0-4.3) K/uL [place] # (0.0-0.8) K/uL Eos # (0.0-0.7) K/uL Baso # (0.0-0.2) K/uL Puncture Site pCO2 (35-45) mm/Hg pO2 (80-100) mm/Hg HCO3 (21-28) mmol/L ABG pH (7.35-7.45) ABG Total CO2 (22-28) mmol/L ABG O2 Saturation (95-98) % ABG Base Excess (-2.0-3.0) mmol/L ABG Hemoglobin (11.7-17.4) g/dL ABG Carboxyhemoglobin (0.5-1.5) % POC ABG HHb (Measured) (0.0-5.0) % ABG Methemoglobin (0.0-3.0) % Parminder Test Hgb O2 Saturation (95.0-98.0) % Sodium (132-148) mmol/L Potassium (3.6-5.2) mmol/L Chloride (98-107) mmol/L Carbon Dioxide (22-30) mmol/L Anion Gap (10-20) BUN (7-17) mg/dL Creatinine (0.7-1.2) MG/DL Est GFR ( Amer) Est GFR (Non-Af Amer) POC Glucose (mg/dL) 286 H 218 H 86 (65-110) mg/dL Random Glucose (65-105) mg/dL Hemoglobin A1c (4.2-6.5) % Calcium (8.6-10.4) mg/dl Phosphorus (2.5-4.5) mg/dL Magnesium (1.6-2.3) mg/dL Total Bilirubin (0.2-1.3) mg/dL AST (14-36) U/L ALT (9-52) U/L Alkaline Phosphatase (38-126) U/L Total Creatine Kinase (30-135) U/L CK-MB (Mass) (0.0-3.38) ng/mL Troponin I, Quant (0.00-0.120) ng/mL Total Protein (6.3-8.3) g/dL Albumin (3.5-5.0) g/dL Globulin (2.2-3.9) gm/dL Albumin/Globulin Ratio (1.0-2.1) 01/09/17 01/09/17 Range/Units 07:15 07:15 WBC 11.1 H (4.8-10.8) K/uL RBC 3.32 L (3.80-5.20) Mil/uL Hgb 9.3 L (11.0-16.0) g/dL Hct 28.4 L (34.0-47.0) % MCV 85.5 (81.0-99.0) fL MCH 27.9 (27.0-31.0) pg MCHC 32.7 L (33.0-37.0) g/dL RDW 16.6 H (11.5-14.5) % Plt Count 264 (130-400) K/uL MPV 7.6 (7.2-11.7) fL Neut % (Auto) 81.2 H (50.0-75.0) % Lymph % (Auto) 12.3 L (20.0-40.0) % [place] % (Auto) 6.1 (0.0-10.0) % Eos % (Auto) 0.1 (0.0-4.0) % Baso % (Auto) 0.3 (0.0-2.0) % Neut # 9.0 H (1.8-7.0) K/uL Lymph # 1.4 (1.0-4.3) K/uL [place] # 0.7 (0.0-0.8) K/uL Eos # 0.0 (0.0-0.7) K/uL Baso # 0.0 (0.0-0.2) K/uL Puncture Site pCO2 (35-45) mm/Hg pO2 (80-100) mm/Hg HCO3 (21-28) mmol/L ABG pH (7.35-7.45) ABG Total CO2 (22-28) mmol/L ABG O2 Saturation (95-98) % ABG Base Excess (-2.0-3.0) mmol/L ABG Hemoglobin (11.7-17.4) g/dL ABG Carboxyhemoglobin (0.5-1.5) % POC ABG HHb (Measured) (0.0-5.0) % ABG Methemoglobin (0.0-3.0) % Parminder Test Hgb O2 Saturation (95.0-98.0) % Sodium 135 (132-148) mmol/L Potassium 3.2 L (3.6-5.2) mmol/L Chloride 109 H (98-107) mmol/L Carbon Dioxide 13 L (22-30) mmol/L Anion Gap 16 (10-20) BUN 27 H (7-17) mg/dL Creatinine 1.0 (0.7-1.2) MG/DL Est GFR ( Amer) > 60 Est GFR (Non-Af Amer) 58 POC Glucose (mg/dL) (65-110) mg/dL Random Glucose 99 (65-105) mg/dL Hemoglobin A1c (4.2-6.5) % Calcium 9.1 (8.6-10.4) mg/dl Phosphorus (2.5-4.5) mg/dL Magnesium (1.6-2.3) mg/dL Total Bilirubin 0.5 (0.2-1.3) mg/dL AST 16 (14-36) U/L ALT 15 (9-52) U/L Alkaline Phosphatase 124 (38-126) U/L Total Creatine Kinase (30-135) U/L CK-MB (Mass) (0.0-3.38) ng/mL Troponin I, Quant (0.00-0.120) ng/mL Total Protein 6.6 (6.3-8.3) g/dL Albumin 3.1 L (3.5-5.0) g/dL Globulin 3.5 (2.2-3.9) gm/dL Albumin/Globulin Ratio 0.9 L (1.0-2.1) Laboratory Results - last 24 hr 01/09/17 01/09/17 01/09/17 07:15 07:15 08:05 WBC 11.1 H RBC 3.32 L Hgb 9.3 L Hct 28.4 L MCV 85.5 MCH 27.9 MCHC 32.7 L RDW 16.6 H Plt Count 264 MPV 7.6 Neut % (Auto) 81.2 H Lymph % (Auto) 12.3 L [place] % (Auto) 6.1 Eos % (Auto) 0.1 Baso % (Auto) 0.3 Neut # 9.0 H Lymph # 1.4 [place] # 0.7 Eos # 0.0 Baso # 0.0 Puncture Site pCO2 pO2 HCO3 ABG pH ABG Total CO2 ABG O2 Saturation ABG Base Excess ABG Hemoglobin ABG Carboxyhemoglobin POC ABG HHb (Measured) ABG Methemoglobin Parminder Test Hgb O2 Saturation Sodium 135 Potassium 3.2 L Chloride 109 H Carbon Dioxide 13 L Anion Gap 16 BUN 27 H Creatinine 1.0 Est GFR ( Amer) > 60 Est GFR (Non-Af Amer) 58 POC Glucose (mg/dL) 86 Random Glucose 99 Hemoglobin A1c Calcium 9.1 Phosphorus Magnesium Total Bilirubin 0.5 AST 16 ALT 15 Alkaline Phosphatase 124 Total Creatine Kinase CK-MB (Mass) Troponin I, Quant Total Protein 6.6 Albumin 3.1 L Globulin 3.5 Albumin/Globulin Ratio 0.9 L 01/09/17 01/09/17 01/09/17 09:29 10:04 11:14 WBC RBC Hgb Hct MCV MCH MCHC RDW Plt Count MPV Neut % (Auto) Lymph % (Auto) [place] % (Auto) Eos % (Auto) Baso % (Auto) Neut # Lymph # [place] # Eos # Baso # Puncture Site pCO2 pO2 HCO3 ABG pH ABG Total CO2 ABG O2 Saturation ABG Base Excess ABG Hemoglobin ABG Carboxyhemoglobin POC ABG HHb (Measured) ABG Methemoglobin Parminder Test Hgb O2 Saturation Sodium Potassium Chloride Carbon Dioxide Anion Gap BUN Creatinine Est GFR ( Amer) Est GFR (Non-Af Amer) POC Glucose (mg/dL) 218 H 286 H 359 H Random Glucose Hemoglobin A1c Calcium Phosphorus Magnesium Total Bilirubin AST ALT Alkaline Phosphatase Total Creatine Kinase CK-MB (Mass) Troponin I, Quant Total Protein Albumin Globulin Albumin/Globulin Ratio 01/09/17 01/09/17 01/09/17 12:11 13:20 13:58 WBC RBC Hgb Hct MCV MCH MCHC RDW Plt Count MPV Neut % (Auto) Lymph % (Auto) [place] % (Auto) Eos % (Auto) Baso % (Auto) Neut # Lymph # [place] # Eos # Baso # Puncture Site pCO2 pO2 HCO3 ABG pH ABG Total CO2 ABG O2 Saturation ABG Base Excess ABG Hemoglobin ABG Carboxyhemoglobin POC ABG HHb (Measured) ABG Methemoglobin Parminder Test Hgb O2 Saturation Sodium Potassium Chloride Carbon Dioxide Anion Gap BUN Creatinine Est GFR ( Amer) Est GFR (Non-Af Amer) POC Glucose (mg/dL) 408 H* 264 H 284 H Random Glucose Hemoglobin A1c Calcium Phosphorus Magnesium Total Bilirubin AST ALT Alkaline Phosphatase Total Creatine Kinase CK-MB (Mass) Troponin I, Quant Total Protein Albumin Globulin Albumin/Globulin Ratio 01/09/17 01/09/17 01/09/17 15:34 16:13 17:10 WBC RBC Hgb Hct MCV MCH MCHC RDW Plt Count MPV Neut % (Auto) Lymph % (Auto) [place] % (Auto) Eos % (Auto) Baso % (Auto) Neut # Lymph # [place] # Eos # Baso # Puncture Site pCO2 pO2 HCO3 ABG pH ABG Total CO2 ABG O2 Saturation ABG Base Excess ABG Hemoglobin ABG Carboxyhemoglobin POC ABG HHb (Measured) ABG Methemoglobin Parminder Test Hgb O2 Saturation Sodium Potassium Chloride Carbon Dioxide Anion Gap BUN Creatinine Est GFR ( Amer) Est GFR (Non-Af Amer) POC Glucose (mg/dL) 125 H 89 54 L Random Glucose Hemoglobin A1c Calcium Phosphorus Magnesium Total Bilirubin AST ALT Alkaline Phosphatase Total Creatine Kinase CK-MB (Mass) Troponin I, Quant Total Protein Albumin Globulin Albumin/Globulin Ratio 01/09/17 01/09/17 01/09/17 17:39 18:11 19:10 WBC RBC Hgb Hct MCV MCH MCHC RDW Plt Count MPV Neut % (Auto) Lymph % (Auto) [place] % (Auto) Eos % (Auto) Baso % (Auto) Neut # Lymph # [place] # Eos # Baso # Puncture Site Lra pCO2 25 L pO2 96 HCO3 15.0 L ABG pH 7.30 L ABG Total CO2 13.1 L ABG O2 Saturation 98.4 H ABG Base Excess -12.8 L ABG Hemoglobin 7.5 L ABG Carboxyhemoglobin 1.4 POC ABG HHb (Measured) 1.6 ABG Methemoglobin 0.8 Parminder Test Pos Hgb O2 Saturation 96.2 Sodium Potassium Chloride Carbon Dioxide Anion Gap BUN Creatinine Est GFR ( Amer) Est GFR (Non-Af Amer) POC Glucose (mg/dL) 152 H 178 H Random Glucose Hemoglobin A1c Calcium Phosphorus Magnesium Total Bilirubin AST ALT Alkaline Phosphatase Total Creatine Kinase CK-MB (Mass) Troponin I, Quant Total Protein Albumin Globulin Albumin/Globulin Ratio 01/09/17 01/09/17 01/09/17 19:15 19:15 19:35 WBC RBC Hgb Hct MCV MCH MCHC RDW Plt Count MPV Neut % (Auto) Lymph % (Auto) [place] % (Auto) Eos % (Auto) Baso % (Auto) Neut # Lymph # [place] # Eos # Baso # Puncture Site pCO2 pO2 HCO3 ABG pH ABG Total CO2 ABG O2 Saturation ABG Base Excess ABG Hemoglobin ABG Carboxyhemoglobin POC ABG HHb (Measured) ABG Methemoglobin Parminder Test Hgb O2 Saturation Sodium 137 Potassium 5.0 Chloride 113 H Carbon Dioxide 14 L Anion Gap 15 BUN 23 H Creatinine 1.0 Est GFR ( Amer) > 60 Est GFR (Non-Af Amer) 58 POC Glucose (mg/dL) 228 H Random Glucose 189 H Hemoglobin A1c 9.1 H Calcium 9.1 Phosphorus 3.0 Magnesium 1.4 L Total Bilirubin 0.5 AST 14 ALT 19 Alkaline Phosphatase 136 H Total Creatine Kinase < 20 L CK-MB (Mass) 0.82 Troponin I, Quant 0.0280 Total Protein 6.9 Albumin 3.2 L Globulin 3.8 Albumin/Globulin Ratio 0.8 L 01/09/17 01/09/17 01/09/17 20:18 21:06 22:12 WBC RBC Hgb Hct MCV MCH MCHC RDW Plt Count MPV Neut % (Auto) Lymph % (Auto) [place] % (Auto) Eos % (Auto) Baso % (Auto) Neut # Lymph # [place] # Eos # Baso # Puncture Site pCO2 pO2 HCO3 ABG pH ABG Total CO2 ABG O2 Saturation ABG Base Excess ABG Hemoglobin ABG Carboxyhemoglobin POC ABG HHb (Measured) ABG Methemoglobin Parminder Test Hgb O2 Saturation Sodium Potassium Chloride Carbon Dioxide Anion Gap BUN Creatinine Est GFR ( Amer) Est GFR (Non-Af Amer) POC Glucose (mg/dL) 287 H 289 H 310 H Random Glucose Hemoglobin A1c Calcium Phosphorus Magnesium Total Bilirubin AST ALT Alkaline Phosphatase Total Creatine Kinase CK-MB (Mass) Troponin I, Quant Total Protein Albumin Globulin Albumin/Globulin Ratio 01/10/17 01/10/17 01/10/17 00:04 01:18 02:42 WBC RBC Hgb Hct MCV MCH MCHC RDW Plt Count MPV Neut % (Auto) Lymph % (Auto) [place] % (Auto) Eos % (Auto) Baso % (Auto) Neut # Lymph # [place] # Eos # Baso # Puncture Site pCO2 pO2 HCO3 ABG pH ABG Total CO2 ABG O2 Saturation ABG Base Excess ABG Hemoglobin ABG Carboxyhemoglobin POC ABG HHb (Measured) ABG Methemoglobin Parminder Test Hgb O2 Saturation Sodium Potassium Chloride Carbon Dioxide Anion Gap BUN Creatinine Est GFR ( Amer) Est GFR (Non-Af Amer) POC Glucose (mg/dL) 150 H 89 168 H Random Glucose Hemoglobin A1c Calcium Phosphorus Magnesium Total Bilirubin AST ALT Alkaline Phosphatase Total Creatine Kinase CK-MB (Mass) Troponin I, Quant Total Protein Albumin Globulin Albumin/Globulin Ratio 01/10/17 01/10/17 03:56 06:08 WBC RBC Hgb Hct MCV MCH MCHC RDW Plt Count MPV Neut % (Auto) Lymph % (Auto) [place] % (Auto) Eos % (Auto) Baso % (Auto) Neut # Lymph # [place] # Eos # Baso # Puncture Site pCO2 pO2 HCO3 ABG pH ABG Total CO2 ABG O2 Saturation ABG Base Excess ABG Hemoglobin ABG Carboxyhemoglobin POC ABG HHb (Measured) ABG Methemoglobin Parminder Test Hgb O2 Saturation Sodium 137 Potassium 5.4 H Chloride 109 H Carbon Dioxide 13 L Anion Gap 20 BUN 20 H Creatinine 1.0 Est GFR ( Amer) > 60 Est GFR (Non-Af Amer) 58 POC Glucose (mg/dL) 243 H Random Glucose 153 H Hemoglobin A1c Calcium 8.8 Phosphorus 3.0 Magnesium 1.4 L Total Bilirubin 0.7 AST 30 ALT 20 Alkaline Phosphatase 116 Total Creatine Kinase CK-MB (Mass) Troponin I, Quant Total Protein 6.9 Albumin 3.1 L Globulin 3.8 Albumin/Globulin Ratio 0.8 L EKG/Cardiology Studies: Cardiology / EKG Studies 01/09/17 12:12 EKG [ELECTROCARDIOGRAM] Stat Comment: Mode Of Transportation: Reason For Exam: diabetic with dka Fingerstick Blood Sugar Results: 287 Review of Systems - Constitutional Constitutional: absent: Fever, Chills - EENT Ears: absent: Dizziness - Cardiovascular Cardiovascular: absent: Chest Pain, Dyspnea, Lightheadedness, Palpitations - Respiratory Respiratory: absent: Cough, Dyspnea - Gastrointestinal Gastrointestinal: absent: Abdominal Pain, Cramping, Nausea, Vomiting - Neurological Neurological: Weakness. 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 Subsequently, patient was found to be in DKA: Plan: ENDO: * Accuchecks * Insulin drip ( D/C 01/10/17) * ISS, medium protocol * Lantus 15 units daily * Novolin R 5 units TIDAC * 1/2 NS D5W KCL 20MEQ switched to 1/2 NS @ 100mls/hr , continue to monitor anion gap and HCO3 * Moderate consistent diet * Continue labs with VBG Q6H Musculoskeletal: Right hand pain Right hand X-ray: No fracture Percocet 1 Tab Q4H for pain control ( Moderate Pain) Tylenol 650mg PO Q6 PRN ( Mild pain control) Prophylaxis: DVT: Heparin 5,000 units SC Q8H, SCDs GI: Protonix 40mg PO daily PT/OT Percocet 1 Tab Q4H for pain control ( Moderate Pain) Tylenol 650mg PO Q6 PRN ( Mild pain control) <Chadwick Lerner P - Last Filed: 01/10/17 19:13> CCU Objective - Vital Signs / Intake & Output Vital Signs (Last 4 hours): Vital Signs Temp Pulse Resp BP Pulse Ox 01/10/17 17:36 98 H 17 166/86 H 100 01/10/17 17:30 98 H 18 100 01/10/17 17:20 96 H 22 98 01/10/17 17:10 94 H 18 99 01/10/17 17:00 94 H 21 99 01/10/17 16:50 93 H 20 99 01/10/17 16:40 96 H 19 100 01/10/17 16:37 94 H 15 180/78 H 100 01/10/17 16:30 93 H 19 01/10/17 16:20 97 H 16 100 01/10/17 16:10 94 H 21 100 01/10/17 16:00 92 H 20 100 01/10/17 15:50 93 H 22 01/10/17 15:40 93 H 22 100 01/10/17 15:36 96 H 17 166/81 H 100 01/10/17 15:30 96 H 19 100 01/10/17 15:27 98.4 F 01/10/17 15:20 96 H 13 100 01/10/17 15:10 96 H 20 100 Intake and Output (Last 8hrs): Intake & Output 01/10/17 01/10/17 01/10/17 06:59 14:59 22:59 Intake Total 1042 655 300 Output Total 900 1250 350 Balance 142 -595 -50 Weight 133 lb 4.8 oz Intake: IV 20 58 Intake, IV Amount 1022 537 300 right hand #! port 1000 525 300 right hand #2 22 12 Oral 60 Output: Urine 900 1250 350 Urethral ([place]) 900 1250 350 Stool 0 0 Emesis 0 0 Other: # Voids Urethral ([place]) 1 1 - Medications Active Medications: Active Medications Generic Name Dose Route Start Last Admin Trade Name Freq PRN Reason Stop Dose Admin Acetaminophen 650 mg 01/10/17 12:45 Tylenol 325mg Tab PO Q6 PRN PAIN, MILD (1-3) Heparin Sodium (Porcine) 5,000 units 01/09/17 06:00 01/10/17 14:25 Heparin SC 5,000 units Q8 ISAI Administration Sodium Chloride 1,000 mls @ 100 mls/hr 01/10/17 11:45 01/10/17 14:26 Sodium Chloride 0.45% IV 100 mls/hr .Q10H ISAI Administration Insulin Glargine 15 unit 01/10/17 11:30 01/10/17 12:25 Lantus SC 15 unit DAILY ISAI Administration Insulin Human Regular 5 unit 01/10/17 11:30 01/10/17 16:54 Novolin R SC Not Given TIDAC ISAI Insulin Human Regular 0 unit 01/10/17 11:30 01/10/17 16:53 Novolin R SC Not Given ACHS ISAI Protocol Oxycodone/Acetaminophen 1 tab 01/10/17 11:32 Percocet 5/325 Mg Tab PO 01/13/17 02:38 Q4H PRN Pain, moderate (4-7) Pantoprazole Sodium 40 mg 01/10/17 11:45 01/10/17 13:50 Protonix Ec Tab PO Not Given DAILY ISAI - Patient Studies Lab Studies: Microbiology Studies 01/08/17 23:39 Urine Culture - Preliminary Urine Gram Negative Jeremi Lab Studies 01/10/17 01/10/17 01/10/17 Range/Units 16:50 16:09 11:41 WBC (4.8-10.8) K/uL RBC (3.80-5.20) Mil/uL Hgb (11.0-16.0) g/dL Hct (34.0-47.0) % MCV (81.0-99.0) fL MCH (27.0-31.0) pg MCHC (33.0-37.0) g/dL RDW (11.5-14.5) % Plt Count (130-400) K/uL MPV (7.2-11.7) fL Neut % (Auto) (50.0-75.0) % Lymph % (Auto) (20.0-40.0) % [place] % (Auto) (0.0-10.0) % Eos % (Auto) (0.0-4.0) % Baso % (Auto) (0.0-2.0) % Neut # (1.8-7.0) K/uL Lymph # (1.0-4.3) K/uL [place] # (0.0-0.8) K/uL Eos # (0.0-0.7) K/uL Baso # (0.0-0.2) K/uL Puncture Site pCO2 (35-45) mm/Hg pO2 (80-100) mm/Hg HCO3 (21-28) mmol/L ABG pH (7.35-7.45) ABG Total CO2 (22-28) mmol/L ABG O2 Saturation (95-98) % ABG Base Excess (-2.0-3.0) mmol/L ABG Hemoglobin (11.7-17.4) g/dL ABG Carboxyhemoglobin (0.5-1.5) % POC ABG HHb (Measured) (0.0-5.0) % ABG Methemoglobin (0.0-3.0) % Parminder Test Hgb O2 Saturation (95.0-98.0) % Sodium 134 (132-148) mmol/L Potassium 4.8 (3.6-5.2) mmol/L Chloride 106 (98-107) mmol/L Carbon Dioxide 18 L (22-30) mmol/L Anion Gap 15 (10-20) BUN 16 (7-17) mg/dL Creatinine 1.0 (0.7-1.2) MG/DL Est GFR ( Amer) > 60 Est GFR (Non-Af Amer) 58 POC Glucose (mg/dL) 130 H 93 (65-110) mg/dL Random Glucose 100 (65-105) mg/dL Hemoglobin A1c (4.2-6.5) % Calcium 9.1 (8.6-10.4) mg/dl Phosphorus (2.5-4.5) mg/dL Magnesium (1.6-2.3) mg/dL Total Bilirubin 0.5 (0.2-1.3) mg/dL AST 15 (14-36) U/L ALT 25 (9-52) U/L Alkaline Phosphatase 124 (38-126) U/L Total Creatine Kinase (30-135) U/L CK-MB (Mass) (0.0-3.38) ng/mL Troponin I, Quant (0.00-0.120) ng/mL Total Protein 6.6 (6.3-8.3) g/dL Albumin 3.0 L (3.5-5.0) g/dL Globulin 3.7 (2.2-3.9) gm/dL Albumin/Globulin Ratio 0.8 L (1.0-2.1) 01/10/17 01/10/17 01/10/17 Range/Units 11:00 10:19 08:59 WBC (4.8-10.8) K/uL RBC (3.80-5.20) Mil/uL Hgb (11.0-16.0) g/dL Hct (34.0-47.0) % MCV (81.0-99.0) fL MCH (27.0-31.0) pg MCHC (33.0-37.0) g/dL RDW (11.5-14.5) % Plt Count (130-400) K/uL MPV (7.2-11.7) fL Neut % (Auto) (50.0-75.0) % Lymph % (Auto) (20.0-40.0) % [place] % (Auto) (0.0-10.0) % Eos % (Auto) (0.0-4.0) % Baso % (Auto) (0.0-2.0) % Neut # (1.8-7.0) K/uL Lymph # (1.0-4.3) K/uL [place] # (0.0-0.8) K/uL Eos # (0.0-0.7) K/uL Baso # (0.0-0.2) K/uL Puncture Site pCO2 (35-45) mm/Hg pO2 (80-100) mm/Hg HCO3 (21-28) mmol/L ABG pH (7.35-7.45) ABG Total CO2 (22-28) mmol/L ABG O2 Saturation (95-98) % ABG Base Excess (-2.0-3.0) mmol/L ABG Hemoglobin (11.7-17.4) g/dL ABG Carboxyhemoglobin (0.5-1.5) % POC ABG HHb (Measured) (0.0-5.0) % ABG Methemoglobin (0.0-3.0) % Parminder Test Hgb O2 Saturation (95.0-98.0) % Sodium (132-148) mmol/L Potassium (3.6-5.2) mmol/L Chloride (98-107) mmol/L Carbon Dioxide (22-30) mmol/L Anion Gap (10-20) BUN (7-17) mg/dL Creatinine (0.7-1.2) MG/DL Est GFR ( Amer) Est GFR (Non-Af Amer) POC Glucose (mg/dL) 151 H 217 H 203 H (65-110) mg/dL Random Glucose (65-105) mg/dL Hemoglobin A1c (4.2-6.5) % Calcium (8.6-10.4) mg/dl Phosphorus (2.5-4.5) mg/dL Magnesium (1.6-2.3) mg/dL Total Bilirubin (0.2-1.3) mg/dL AST (14-36) U/L ALT (9-52) U/L Alkaline Phosphatase (38-126) U/L Total Creatine Kinase (30-135) U/L CK-MB (Mass) (0.0-3.38) ng/mL Troponin I, Quant (0.00-0.120) ng/mL Total Protein (6.3-8.3) g/dL Albumin (3.5-5.0) g/dL Globulin (2.2-3.9) gm/dL Albumin/Globulin Ratio (1.0-2.1) 01/10/17 01/10/17 01/10/17 Range/Units 07:44 06:08 06:08 WBC 9.6 (4.8-10.8) K/uL RBC 3.17 L (3.80-5.20) Mil/uL Hgb 8.8 L (11.0-16.0) g/dL Hct 27.0 L (34.0-47.0) % MCV 85.3 (81.0-99.0) fL MCH 27.9 (27.0-31.0) pg MCHC 32.7 L (33.0-37.0) g/dL RDW 17.4 H (11.5-14.5) % Plt Count 271 (130-400) K/uL MPV 8.1 (7.2-11.7) fL Neut % (Auto) 73.9 (50.0-75.0) % Lymph % (Auto) 18.0 L (20.0-40.0) % [place] % (Auto) 7.5 (0.0-10.0) % Eos % (Auto) 0.1 (0.0-4.0) % Baso % (Auto) 0.5 (0.0-2.0) % Neut # 7.1 H (1.8-7.0) K/uL Lymph # 1.7 (1.0-4.3) K/uL [place] # 0.7 (0.0-0.8) K/uL Eos # 0.0 (0.0-0.7) K/uL Baso # 0.0 (0.0-0.2) K/uL Puncture Site pCO2 (35-45) mm/Hg pO2 (80-100) mm/Hg HCO3 (21-28) mmol/L ABG pH (7.35-7.45) ABG Total CO2 (22-28) mmol/L ABG O2 Saturation (95-98) % ABG Base Excess (-2.0-3.0) mmol/L ABG Hemoglobin (11.7-17.4) g/dL ABG Carboxyhemoglobin (0.5-1.5) % POC ABG HHb (Measured) (0.0-5.0) % ABG Methemoglobin (0.0-3.0) % Parminder Test Hgb O2 Saturation (95.0-98.0) % Sodium 137 (132-148) mmol/L Potassium 5.4 H (3.6-5.2) mmol/L Chloride 109 H (98-107) mmol/L Carbon Dioxide 13 L (22-30) mmol/L Anion Gap 20 (10-20) BUN 20 H (7-17) mg/dL Creatinine 1.0 (0.7-1.2) MG/DL Est GFR ( Amer) > 60 Est GFR (Non-Af Amer) 58 POC Glucose (mg/dL) 87 (65-110) mg/dL Random Glucose 153 H (65-105) mg/dL Hemoglobin A1c (4.2-6.5) % Calcium 8.8 (8.6-10.4) mg/dl Phosphorus 3.0 (2.5-4.5) mg/dL Magnesium 1.4 L (1.6-2.3) mg/dL Total Bilirubin 0.7 (0.2-1.3) mg/dL AST 30 (14-36) U/L ALT 20 (9-52) U/L Alkaline Phosphatase 116 (38-126) U/L Total Creatine Kinase (30-135) U/L CK-MB (Mass) (0.0-3.38) ng/mL Troponin I, Quant (0.00-0.120) ng/mL Total Protein 6.9 (6.3-8.3) g/dL Albumin 3.1 L (3.5-5.0) g/dL Globulin 3.8 (2.2-3.9) gm/dL Albumin/Globulin Ratio 0.8 L (1.0-2.1) 01/10/17 01/10/17 01/10/17 Range/Units 03:56 02:42 01:18 WBC (4.8-10.8) K/uL RBC (3.80-5.20) Mil/uL Hgb (11.0-16.0) g/dL Hct (34.0-47.0) % MCV (81.0-99.0) fL MCH (27.0-31.0) pg MCHC (33.0-37.0) g/dL RDW (11.5-14.5) % Plt Count (130-400) K/uL MPV (7.2-11.7) fL Neut % (Auto) (50.0-75.0) % Lymph % (Auto) (20.0-40.0) % [place] % (Auto) (0.0-10.0) % Eos % (Auto) (0.0-4.0) % Baso % (Auto) (0.0-2.0) % Neut # (1.8-7.0) K/uL Lymph # (1.0-4.3) K/uL [place] # (0.0-0.8) K/uL Eos # (0.0-0.7) K/uL Baso # (0.0-0.2) K/uL Puncture Site pCO2 (35-45) mm/Hg pO2 (80-100) mm/Hg HCO3 (21-28) mmol/L ABG pH (7.35-7.45) ABG Total CO2 (22-28) mmol/L ABG O2 Saturation (95-98) % ABG Base Excess (-2.0-3.0) mmol/L ABG Hemoglobin (11.7-17.4) g/dL ABG Carboxyhemoglobin (0.5-1.5) % POC ABG HHb (Measured) (0.0-5.0) % ABG Methemoglobin (0.0-3.0) % Parminder Test Hgb O2 Saturation (95.0-98.0) % Sodium (132-148) mmol/L Potassium (3.6-5.2) mmol/L Chloride (98-107) mmol/L Carbon Dioxide (22-30) mmol/L Anion Gap (10-20) BUN (7-17) mg/dL Creatinine (0.7-1.2) MG/DL Est GFR ( Amer) Est GFR (Non-Af Amer) POC Glucose (mg/dL) 243 H 168 H 89 (65-110) mg/dL Random Glucose (65-105) mg/dL Hemoglobin A1c (4.2-6.5) % Calcium (8.6-10.4) mg/dl Phosphorus (2.5-4.5) mg/dL Magnesium (1.6-2.3) mg/dL Total Bilirubin (0.2-1.3) mg/dL AST (14-36) U/L ALT (9-52) U/L Alkaline Phosphatase (38-126) U/L Total Creatine Kinase (30-135) U/L CK-MB (Mass) (0.0-3.38) ng/mL Troponin I, Quant (0.00-0.120) ng/mL Total Protein (6.3-8.3) g/dL Albumin (3.5-5.0) g/dL Globulin (2.2-3.9) gm/dL Albumin/Globulin Ratio (1.0-2.1) 01/10/17 01/09/17 01/09/17 Range/Units 00:04 22:12 21:06 WBC (4.8-10.8) K/uL RBC (3.80-5.20) Mil/uL Hgb (11.0-16.0) g/dL Hct (34.0-47.0) % MCV (81.0-99.0) fL MCH (27.0-31.0) pg MCHC (33.0-37.0) g/dL RDW (11.5-14.5) % Plt Count (130-400) K/uL MPV (7.2-11.7) fL Neut % (Auto) (50.0-75.0) % Lymph % (Auto) (20.0-40.0) % [place] % (Auto) (0.0-10.0) % Eos % (Auto) (0.0-4.0) % Baso % (Auto) (0.0-2.0) % Neut # (1.8-7.0) K/uL Lymph # (1.0-4.3) K/uL [place] # (0.0-0.8) K/uL Eos # (0.0-0.7) K/uL Baso # (0.0-0.2) K/uL Puncture Site pCO2 (35-45) mm/Hg pO2 (80-100) mm/Hg HCO3 (21-28) mmol/L ABG pH (7.35-7.45) ABG Total CO2 (22-28) mmol/L ABG O2 Saturation (95-98) % ABG Base Excess (-2.0-3.0) mmol/L ABG Hemoglobin (11.7-17.4) g/dL ABG Carboxyhemoglobin (0.5-1.5) % POC ABG HHb (Measured) (0.0-5.0) % ABG Methemoglobin (0.0-3.0) % Parminder Test Hgb O2 Saturation (95.0-98.0) % Sodium (132-148) mmol/L Potassium (3.6-5.2) mmol/L Chloride (98-107) mmol/L Carbon Dioxide (22-30) mmol/L Anion Gap (10-20) BUN (7-17) mg/dL Creatinine (0.7-1.2) MG/DL Est GFR ( Amer) Est GFR (Non-Af Amer) POC Glucose (mg/dL) 150 H 310 H 289 H (65-110) mg/dL Random Glucose (65-105) mg/dL Hemoglobin A1c (4.2-6.5) % Calcium (8.6-10.4) mg/dl Phosphorus (2.5-4.5) mg/dL Magnesium (1.6-2.3) mg/dL Total Bilirubin (0.2-1.3) mg/dL AST (14-36) U/L ALT (9-52) U/L Alkaline Phosphatase (38-126) U/L Total Creatine Kinase (30-135) U/L CK-MB (Mass) (0.0-3.38) ng/mL Troponin I, Quant (0.00-0.120) ng/mL Total Protein (6.3-8.3) g/dL Albumin (3.5-5.0) g/dL Globulin (2.2-3.9) gm/dL Albumin/Globulin Ratio (1.0-2.1) 01/09/17 01/09/17 01/09/17 Range/Units 20:18 19:35 19:15 WBC (4.8-10.8) K/uL RBC (3.80-5.20) Mil/uL Hgb (11.0-16.0) g/dL Hct (34.0-47.0) % MCV (81.0-99.0) fL MCH (27.0-31.0) pg MCHC (33.0-37.0) g/dL RDW (11.5-14.5) % Plt Count (130-400) K/uL MPV (7.2-11.7) fL Neut % (Auto) (50.0-75.0) % Lymph % (Auto) (20.0-40.0) % [place] % (Auto) (0.0-10.0) % Eos % (Auto) (0.0-4.0) % Baso % (Auto) (0.0-2.0) % Neut # (1.8-7.0) K/uL Lymph # (1.0-4.3) K/uL [place] # (0.0-0.8) K/uL Eos # (0.0-0.7) K/uL Baso # (0.0-0.2) K/uL Puncture Site pCO2 (35-45) mm/Hg pO2 (80-100) mm/Hg HCO3 (21-28) mmol/L ABG pH (7.35-7.45) ABG Total CO2 (22-28) mmol/L ABG O2 Saturation (95-98) % ABG Base Excess (-2.0-3.0) mmol/L ABG Hemoglobin (11.7-17.4) g/dL ABG Carboxyhemoglobin (0.5-1.5) % POC ABG HHb (Measured) (0.0-5.0) % ABG Methemoglobin (0.0-3.0) % Parminder Test Hgb O2 Saturation (95.0-98.0) % Sodium (132-148) mmol/L Potassium (3.6-5.2) mmol/L Chloride (98-107) mmol/L Carbon Dioxide (22-30) mmol/L Anion Gap (10-20) BUN (7-17) mg/dL Creatinine (0.7-1.2) MG/DL Est GFR ( Amer) Est GFR (Non-Af Amer) POC Glucose (mg/dL) 287 H 228 H (65-110) mg/dL Random Glucose (65-105) mg/dL Hemoglobin A1c 9.1 H (4.2-6.5) % Calcium (8.6-10.4) mg/dl Phosphorus (2.5-4.5) mg/dL Magnesium (1.6-2.3) mg/dL Total Bilirubin (0.2-1.3) mg/dL AST (14-36) U/L ALT (9-52) U/L Alkaline Phosphatase (38-126) U/L Total Creatine Kinase (30-135) U/L CK-MB (Mass) (0.0-3.38) ng/mL Troponin I, Quant (0.00-0.120) ng/mL Total Protein (6.3-8.3) g/dL Albumin (3.5-5.0) g/dL Globulin (2.2-3.9) gm/dL Albumin/Globulin Ratio (1.0-2.1) 01/09/17 01/09/17 01/09/17 Range/Units 19:15 19:10 18:11 WBC (4.8-10.8) K/uL RBC (3.80-5.20) Mil/uL Hgb (11.0-16.0) g/dL Hct (34.0-47.0) % MCV (81.0-99.0) fL MCH (27.0-31.0) pg MCHC (33.0-37.0) g/dL RDW (11.5-14.5) % Plt Count (130-400) K/uL MPV (7.2-11.7) fL Neut % (Auto) (50.0-75.0) % Lymph % (Auto) (20.0-40.0) % [place] % (Auto) (0.0-10.0) % Eos % (Auto) (0.0-4.0) % Baso % (Auto) (0.0-2.0) % Neut # (1.8-7.0) K/uL Lymph # (1.0-4.3) K/uL [place] # (0.0-0.8) K/uL Eos # (0.0-0.7) K/uL Baso # (0.0-0.2) K/uL Puncture Site Lra pCO2 25 L (35-45) mm/Hg pO2 96 (80-100) mm/Hg HCO3 15.0 L (21-28) mmol/L ABG pH 7.30 L (7.35-7.45) ABG Total CO2 13.1 L (22-28) mmol/L ABG O2 Saturation 98.4 H (95-98) % ABG Base Excess -12.8 L (-2.0-3.0) mmol/L ABG Hemoglobin 7.5 L (11.7-17.4) g/dL ABG Carboxyhemoglobin 1.4 (0.5-1.5) % POC ABG HHb (Measured) 1.6 (0.0-5.0) % ABG Methemoglobin 0.8 (0.0-3.0) % Parminder Test Pos Hgb O2 Saturation 96.2 (95.0-98.0) % Sodium 137 (132-148) mmol/L Potassium 5.0 (3.6-5.2) mmol/L Chloride 113 H (98-107) mmol/L Carbon Dioxide 14 L (22-30) mmol/L Anion Gap 15 (10-20) BUN 23 H (7-17) mg/dL Creatinine 1.0 (0.7-1.2) MG/DL Est GFR ( Amer) > 60 Est GFR (Non-Af Amer) 58 POC Glucose (mg/dL) 178 H (65-110) mg/dL Random Glucose 189 H (65-105) mg/dL Hemoglobin A1c (4.2-6.5) % Calcium 9.1 (8.6-10.4) mg/dl Phosphorus 3.0 (2.5-4.5) mg/dL Magnesium 1.4 L (1.6-2.3) mg/dL Total Bilirubin 0.5 (0.2-1.3) mg/dL AST 14 (14-36) U/L ALT 19 (9-52) U/L Alkaline Phosphatase 136 H (38-126) U/L Total Creatine Kinase < 20 L (30-135) U/L CK-MB (Mass) 0.82 (0.0-3.38) ng/mL Troponin I, Quant 0.0280 (0.00-0.120) ng/mL Total Protein 6.9 (6.3-8.3) g/dL Albumin 3.2 L (3.5-5.0) g/dL Globulin 3.8 (2.2-3.9) gm/dL Albumin/Globulin Ratio 0.8 L (1.0-2.1) Laboratory Results - last 24 hr 01/09/17 01/09/17 01/09/17 18:11 19:10 19:15 WBC RBC Hgb Hct MCV MCH MCHC RDW Plt Count MPV Neut % (Auto) Lymph % (Auto) [place] % (Auto) Eos % (Auto) Baso % (Auto) Neut # Lymph # [place] # Eos # Baso # Puncture Site Lra pCO2 25 L pO2 96 HCO3 15.0 L ABG pH 7.30 L ABG Total CO2 13.1 L ABG O2 Saturation 98.4 H ABG Base Excess -12.8 L ABG Hemoglobin 7.5 L ABG Carboxyhemoglobin 1.4 POC ABG HHb (Measured) 1.6 ABG Methemoglobin 0.8 Parminder Test Pos Hgb O2 Saturation 96.2 Sodium 137 Potassium 5.0 Chloride 113 H Carbon Dioxide 14 L Anion Gap 15 BUN 23 H Creatinine 1.0 Est GFR ( Amer) > 60 Est GFR (Non-Af Amer) 58 POC Glucose (mg/dL) 178 H Random Glucose 189 H Hemoglobin A1c Calcium 9.1 Phosphorus 3.0 Magnesium 1.4 L Total Bilirubin 0.5 AST 14 ALT 19 Alkaline Phosphatase 136 H Total Creatine Kinase < 20 L CK-MB (Mass) 0.82 Troponin I, Quant 0.0280 Total Protein 6.9 Albumin 3.2 L Globulin 3.8 Albumin/Globulin Ratio 0.8 L 01/09/17 01/09/17 01/09/17 19:15 19:35 20:18 WBC RBC Hgb Hct MCV MCH MCHC RDW Plt Count MPV Neut % (Auto) Lymph % (Auto) [place] % (Auto) Eos % (Auto) Baso % (Auto) Neut # Lymph # [place] # Eos # Baso # Puncture Site pCO2 pO2 HCO3 ABG pH ABG Total CO2 ABG O2 Saturation ABG Base Excess ABG Hemoglobin ABG Carboxyhemoglobin POC ABG HHb (Measured) ABG Methemoglobin Parminder Test Hgb O2 Saturation Sodium Potassium Chloride Carbon Dioxide Anion Gap BUN Creatinine Est GFR ( Amer) Est GFR (Non-Af Amer) POC Glucose (mg/dL) 228 H 287 H Random Glucose Hemoglobin A1c 9.1 H Calcium Phosphorus Magnesium Total Bilirubin AST ALT Alkaline Phosphatase Total Creatine Kinase CK-MB (Mass) Troponin I, Quant Total Protein Albumin Globulin Albumin/Globulin Ratio 01/09/17 01/09/17 01/10/17 21:06 22:12 00:04 WBC RBC Hgb Hct MCV MCH MCHC RDW Plt Count MPV Neut % (Auto) Lymph % (Auto) [place] % (Auto) Eos % (Auto) Baso % (Auto) Neut # Lymph # [place] # Eos # Baso # Puncture Site pCO2 pO2 HCO3 ABG pH ABG Total CO2 ABG O2 Saturation ABG Base Excess ABG Hemoglobin ABG Carboxyhemoglobin POC ABG HHb (Measured) ABG Methemoglobin Parminder Test Hgb O2 Saturation Sodium Potassium Chloride Carbon Dioxide Anion Gap BUN Creatinine Est GFR ( Amer) Est GFR (Non-Af Amer) POC Glucose (mg/dL) 289 H 310 H 150 H Random Glucose Hemoglobin A1c Calcium Phosphorus Magnesium Total Bilirubin AST ALT Alkaline Phosphatase Total Creatine Kinase CK-MB (Mass) Troponin I, Quant Total Protein Albumin Globulin Albumin/Globulin Ratio 01/10/17 01/10/17 01/10/17 01:18 02:42 03:56 WBC RBC Hgb Hct MCV MCH MCHC RDW Plt Count MPV Neut % (Auto) Lymph % (Auto) [place] % (Auto) Eos % (Auto) Baso % (Auto) Neut # Lymph # [place] # Eos # Baso # Puncture Site pCO2 pO2 HCO3 ABG pH ABG Total CO2 ABG O2 Saturation ABG Base Excess ABG Hemoglobin ABG Carboxyhemoglobin POC ABG HHb (Measured) ABG Methemoglobin Parminder Test Hgb O2 Saturation Sodium Potassium Chloride Carbon Dioxide Anion Gap BUN Creatinine Est GFR ( Amer) Est GFR (Non-Af Amer) POC Glucose (mg/dL) 89 168 H 243 H Random Glucose Hemoglobin A1c Calcium Phosphorus Magnesium Total Bilirubin AST ALT Alkaline Phosphatase Total Creatine Kinase CK-MB (Mass) Troponin I, Quant Total Protein Albumin Globulin Albumin/Globulin Ratio 01/10/17 01/10/17 01/10/17 06:08 06:08 07:44 WBC 9.6 RBC 3.17 L Hgb 8.8 L Hct 27.0 L MCV 85.3 MCH 27.9 MCHC 32.7 L RDW 17.4 H Plt Count 271 MPV 8.1 Neut % (Auto) 73.9 Lymph % (Auto) 18.0 L [place] % (Auto) 7.5 Eos % (Auto) 0.1 Baso % (Auto) 0.5 Neut # 7.1 H Lymph # 1.7 [place] # 0.7 Eos # 0.0 Baso # 0.0 Puncture Site pCO2 pO2 HCO3 ABG pH ABG Total CO2 ABG O2 Saturation ABG Base Excess ABG Hemoglobin ABG Carboxyhemoglobin POC ABG HHb (Measured) ABG Methemoglobin Parminder Test Hgb O2 Saturation Sodium 137 Potassium 5.4 H Chloride 109 H Carbon Dioxide 13 L Anion Gap 20 BUN 20 H Creatinine 1.0 Est GFR ( Amer) > 60 Est GFR (Non-Af Amer) 58 POC Glucose (mg/dL) 87 Random Glucose 153 H Hemoglobin A1c Calcium 8.8 Phosphorus 3.0 Magnesium 1.4 L Total Bilirubin 0.7 AST 30 ALT 20 Alkaline Phosphatase 116 Total Creatine Kinase CK-MB (Mass) Troponin I, Quant Total Protein 6.9 Albumin 3.1 L Globulin 3.8 Albumin/Globulin Ratio 0.8 L 01/10/17 01/10/17 01/10/17 08:59 10:19 11:00 WBC RBC Hgb Hct MCV MCH MCHC RDW Plt Count MPV Neut % (Auto) Lymph % (Auto) [place] % (Auto) Eos % (Auto) Baso % (Auto) Neut # Lymph # [place] # Eos # Baso # Puncture Site pCO2 pO2 HCO3 ABG pH ABG Total CO2 ABG O2 Saturation ABG Base Excess ABG Hemoglobin ABG Carboxyhemoglobin POC ABG HHb (Measured) ABG Methemoglobin Parminder Test Hgb O2 Saturation Sodium Potassium Chloride Carbon Dioxide Anion Gap BUN Creatinine Est GFR ( Amer) Est GFR (Non-Af Amer) POC Glucose (mg/dL) 203 H 217 H 151 H Random Glucose Hemoglobin A1c Calcium Phosphorus Magnesium Total Bilirubin AST ALT Alkaline Phosphatase Total Creatine Kinase CK-MB (Mass) Troponin I, Quant Total Protein Albumin Globulin Albumin/Globulin Ratio 01/10/17 01/10/17 01/10/17 11:41 16:09 16:50 WBC RBC Hgb Hct MCV MCH MCHC RDW Plt Count MPV Neut % (Auto) Lymph % (Auto) [place] % (Auto) Eos % (Auto) Baso % (Auto) Neut # Lymph # [place] # Eos # Baso # Puncture Site pCO2 pO2 HCO3 ABG pH ABG Total CO2 ABG O2 Saturation ABG Base Excess ABG Hemoglobin ABG Carboxyhemoglobin POC ABG HHb (Measured) ABG Methemoglobin Parminder Test Hgb O2 Saturation Sodium 134 Potassium 4.8 Chloride 106 Carbon Dioxide 18 L Anion Gap 15 BUN 16 Creatinine 1.0 Est GFR ( Amer) > 60 Est GFR (Non-Af Amer) 58 POC Glucose (mg/dL) 93 130 H Random Glucose 100 Hemoglobin A1c Calcium 9.1 Phosphorus Magnesium Total Bilirubin 0.5 AST 15 ALT 25 Alkaline Phosphatase 124 Total Creatine Kinase CK-MB (Mass) Troponin I, Quant Total Protein 6.6 Albumin 3.0 L Globulin 3.7 Albumin/Globulin Ratio 0.8 L Critical Care Progress Note - Nutrition Nutrition: Nutrition Category Date Time Status Heart Healthy Diet [DIET] Diets 01/09/17 Lunch Active Attending/Attestation - Attestation I have personally seen and examined this patient.: Yes I have fully participated in the care of the patient.: Yes I have reviewed all pertinent clinical information: Yes Notes (Text): 01/10/17 19:10 DKA resolved, anion gap closed, started on subq insulin lantus 15 units, and regular insulin 5-5-5 with meals, with sliding scale coverage, patient still eating less. will transfer out of the ICU to tele. GI DVT prophylaxis.
[2017-01-10] MEDS ORDERED: Dextrose 5%/0.9% NS 1,000 ML IV SCH (08:00)
[2017-01-10] MEDS ORDERED: (Novolin N) Insulin Human Isophane (NPH) 100 u/ml 10 ml vial SC ONE (11:25)
[2017-01-10] MEDS ORDERED: Potassium Ch 20mEq in D5-1/2NS 1,000 ML IV SCH (11:30)
[2017-01-10] MEDS: (Lantus) Insulin Glargine, Recombinant SC SCH (12:25)
--- NOTE | 2017-01-10 13:44 | RAD ---
HISTORY: verify right PICC COMPARISON: Comparison is made to 01/08/2027 T FINDINGS: LUNGS: No significant interval change in the lungs noted. PLEURA: No significant pleural effusion identified, no pneumothorax apparent. CARDIOVASCULAR: Normal. OSSEOUS STRUCTURES: No significant abnormalities. VISUALIZED UPPER ABDOMEN: Normal. OTHER FINDINGS: Right sided PICC line is seen in place with the tip at the distal SVC. IMPRESSION: Appropriate position of the right-sided PICC line.
[2017-01-10] MEDS: Pantoprazole 40 mg EC Tab PO SCH (13:50)
[2017-01-10] MEDS: (Novolin R) Insulin Human Regular 100 units/ml vial SC SCH ×5 (13:50→22:00)
[2017-01-10] MEDS: Sodium Chloride 0.45% 1,000 ML IV SCH ×2 (14:26→21:49)
[2017-01-10 17:11] LABS: CHLORIDE 106 mmol/L (98-107)
[2017-01-10 17:12] LABS: POTASSIUM 4.8 mmol/L (3.6-5.2); SODIUM 134 mmol/L (132-148)
[2017-01-10 17:14] LABS: ALB/GLOB RATIO 0.8 (1.0-2.1); AST/SGOT 15 U/L (14-36); BILIRUBIN,TOTAL 0.5 mg/dL (0.2-1.3); CARBON DIOXIDE 18 mmol/L (22-30); GFR AFRICAN-AMERICAN > 60; TOTAL PROTEIN 6.6 g/dL (6.3-8.3)
[2017-01-10 17:15] LABS: ALKALINE PHOSPHATASE 124 U/L (38-126); ALT/SGPT 25 U/L (9-52); BLOOD UREA NITROGEN 16 mg/dL (7-17); CALCIUM 9.1 mg/dl (8.6-10.4); GLUCOSE,RANDOM 100 mg/dL (65-105)
--- NOTE | 2017-01-10 18:05 | RAD ---
PROCEDURE: Left Hip X-ray Radiographs. HISTORY: Trauma/ COMPARISON: Fall FINDINGS: BONES: No acute fractures or evidence of dislocation. Intramedullary eri identified left femur. This is incompletely visualized. Unremarkable findings related to right ANIL. JOINTS: Degenerative changes left hip. SOFT TISSUES: Normal. OTHER FINDINGS: Fecal impaction without obstruction. IMPRESSION: No acute findings related to/accounting for the clinical presentation. Additional benign and/or incidental findings described above.
--- NOTE | 2017-01-10 18:20 | RAD ---
PROCEDURE: Radiographs of the left tibia and fibula. HISTORY: Fell COMPARISON: January 10, 2017. Left femur. TECHNIQUE: Frontal and lateral views obtained. FINDINGS: BONES: Diffuse osteopenia. No acute fractures. JOINT SPACES: Incompletely catheterized medial lateral compartment degenerative change left knee. Nondiagnostic assessment of the ankle joint. OTHER FINDINGS: Incompletely visualize intramedullary eri distal left femur. IMPRESSION: No acute findings related to/accounting for the clinical presentation. Additional benign and/or incidental findings described above.
[2017-01-11 06:30] LABS: BASO % 0.7 % (0.0-2.0); EOS % 0.1 % (0.0-4.0); HEMATOCRIT 28.4 % (34.0-47.0); LYMPH # 1.6 K/uL (1.0-4.3); MEAN CELL VOLUME 85.4 fL (81.0-99.0); MEAN CORPUSCULAR HEMOGLOBIN 27.8 pg (27.0-31.0); MEAN CORPUSCULAR HGB CONC 32.5 g/dL (33.0-37.0); MEAN PLATELET VOLUME 7.6 fL (7.2-11.7); MONO # 0.5 K/uL (0.0-0.8); MONO % 7.8 % (0.0-10.0); WHITE BLOOD COUNT 6.2 K/uL (4.8-10.8)
[2017-01-11 06:44] LABS: ALKALINE PHOSPHATASE 134 U/L (38-126); ALT/SGPT 22 U/L (9-52); AST/SGOT 20 U/L (14-36); BILIRUBIN,TOTAL 0.6 mg/dL (0.2-1.3); BLOOD UREA NITROGEN 14 mg/dL (7-17); CALCIUM 9.4 mg/dl (8.6-10.4); CARBON DIOXIDE 17 mmol/L (22-30); CHLORIDE 105 mmol/L (98-107); GFR AFRICAN-AMERICAN > 60; GLUCOSE,RANDOM 239 mg/dL (65-105); MAGNESIUM 1.4 mg/dL (1.6-2.3); PHOSPHOROUS 3.6 mg/dL (2.5-4.5); POTASSIUM 4.8 mmol/L (3.6-5.2); SODIUM 133 mmol/L (132-148); TOTAL PROTEIN 6.6 g/dL (6.3-8.3)
[2017-01-11 06:49] LABS: ALB/GLOB RATIO 0.8 (1.0-2.1)
[2017-01-11] MEDS: (Novolin R) Insulin Human Regular 100 units/ml vial SC SCH ×7 (08:02→22:00)
[2017-01-11] MEDS: Sodium Chloride 0.45% 1,000 ML IV SCH ×3 (08:30→17:53)
[2017-01-11] MEDS: Pantoprazole 40 mg EC Tab PO SCH (10:00)
[2017-01-11] MEDS: (Lantus) Insulin Glargine, Recombinant SC SCH (10:00)
[2017-01-11] MEDS: Oxycodone/Acetaminophen 5/325 mg Tab PO PRN (11:33)
--- NOTE | 2017-01-11 18:45 | CP.PCM.CON ---
History of Present Illness - History of Present Illness History of Present Illness: 51 yo F with a PMHx of DM, RA, recurrent UTI Anemia, HTN, Hyperlipidemia, Seizures, [facility] in [facility] due to fall in shower with closed head injury and sprained ankle. In ED patient was found to be in DKA. ID consulted for hx UTI Review of Systems - Review of Systems All systems: reviewed and no additional remarkable complaints except - Constitutional Constitutional: As Per HPI - EENT Eyes: absent: As Per HPI, Blind Spots, Blurred Vision, Change in Vision, Decreased Night Vision, Diplopia, Discharge, Dry Eye, Exophthalmos, Floaters, Irritation, Itchy Eyes, Loss of Peripheral Vision, Pain, Photophobia, Requires Corrective Lenses, Sees Flashes, Spots in Vision, Tunnel Vision, Other Visual Disturbances, Loss of Vision, Other Ears: absent: As Per HPI, Decreased Hearing, Ear Discharge, Ear Pain, Tinnitus, Abnormal Hearing, Disequilibrium, Dizziness, Other Nose/Mouth/Throat: absent: As Per HPI, Epistaxis, Nasal Congestion, Nasal Discharge, Nasal Obstruction, Nasal Trauma, Nose Pain, Post Nasal Drip, Sinus Pain, Sinus Pressure, Bleeding Gums, Change in Voice, Dental Pain, Dry Mouth, Dysphagia, Halitosis, Hoarsness, Lip Swelling, Mouth Lesions, Mouth Pain, Odynophagia, Sore Throat, Throat Swelling, Tongue Swelling, Facial Pain, Neck Pain, Neck Mass, Other - Breasts Breasts: absent: As Per HPI, Change in Shape, Mass, Pain, Nipple Discharge, Nipple Inversion, Skin Changes, Swelling, Other - Cardiovascular Cardiovascular: absent: As Per HPI, Acrocyanosis, Chest Pain, Chest Pain at Rest , Chest Pain with Activity, Claudication, Diaphoresis, Dyspnea, Dyspnea on Exertion, Edema, Irregular Heart Rhythm, Pain Radiating to Arm/Neck/Jaw, Leg Edema, Leg Ulcers, Lightheadedness, Orthopnea, Palpitations, Paroxysmal Nocturnal Dyspnea, Pedal Edema, Radiating Pain, Rapid Heart Rate, Slow Heart Rate, Syncope, Other - Respiratory Respiratory: absent: As Per HPI, Cough, Dyspnea, Hemoptysis, Dyspnea on Exertion , Wheezing, Snoring, Stridor, Pain on Inspiration, Chest Congestion, Excessive Mucous Production, Change in Mucous Color, Pain with Coughing, Other - Gastrointestinal Gastrointestinal: absent: As Per HPI, Abdominal Pain, Belching, Bloating, Change in Bowel Habits, Change in Stool Character, Coffee Ground Emesis, Constipation, Cramping, Diarrhea, Dyspepsia, Dysphagia, Early Satiety, Excessive Flatus, Fecal Incontinence, Heartburn, Hematemesis, Hematochezia, Loose Stools, Melena, Nausea, Odynophagia, Temesmus, Vomiting, Other - Genitourinary Genitourinary: As Per HPI - Reproductive: Female Reproductive:Female: absent: As Per HPI, Amenorrhea, Amenorrhea/ Control, Currently Menstual, Cycle <21 Days, Cycle >35 Days, Cycle Variable, Menses 1-7 Days, Menses >/= 8 Days, Menses Variable, Cycle > 4 Weeks Between, No Menses for 6 Months, Heavy Menses, Light Menses, Normal Menses, Spotting Between Cycles , S/P Hysterectomy, Menopausal, Post Menopausal, Premenarche, Abnormal Vaginal Bleeding, Dysmenorrhea, Dyspareunia, Genital Lesions, Genital Pruritis, Pelvic Pain, Prolapse Symptoms, Sexual Dysfunction, Vaginal Discharge, Vaginal Dryness , Vaginal Odor, Vaginal Pruritis, Other - Musculoskeletal Musculoskeletal: As Per HPI - Integumentary Integumentary: As Per HPI - Neurological Neurological: As Per HPI - Psychiatric Psychiatric: absent: As Per HPI, Abnormal Sleep Pattern, Anhedonia, Anxiety, Auditory Hallucinations, Behavioral Changes, Change in Appetite, Change in Libido, Confusion, Depression, Difficulty Concentrating, Hallucinations, Homicidal Ideation, Hopelessness, Irritability, Memory Loss, Mood Swings, Panic Attacks, Paranoia, Suicidal Ideation, Visual Hallucinations, Tactile Hallucinations, Other - Endocrine Endocrine: As Per HPI - Hematologic/Lymphatic Hematologic: As Per HPI. absent: Easy Bleeding, Easy Bruising, Lymphadenopathy , Other Past Patient History - Past Medical History & Family History Past Medical History?: Yes - Past Social History Smoking Status: Never Smoked - CARDIAC Hx Hypertension: Yes - PULMONARY Hx Respiratory Disorders: No - NEUROLOGICAL Hx Seizures: Yes - HEENT Hx HEENT Problems: No - RENAL Hx Chronic Kidney Disease: No - ENDOCRINE/METABOLIC Hx Diabetes Mellitus Type 1: Yes - HEMATOLOGICAL/ONCOLOGICAL Hx Anemia: Yes - INTEGUMENTARY Hx Dermatological Problems: No - MUSCULOSKELETAL/RHEUMATOLOGICAL Hx Rheumatoid Arthritis: Yes - GASTROINTESTINAL Hx Gastrointestinal Disorders: No - GENITOURINARY/GYNECOLOGICAL Hx Genitourinary Disorders: Yes Hx Incontinence: Yes - PSYCHIATRIC Hx Substance Use: No - SURGICAL HISTORY Hx Surgeries: (UNKNOWN) - ANESTHESIA Hx Anesthesia: No Meds Allergies/Adverse Reactions: Allergies Allergy/AdvReac Type Severity Reaction Status Date / Time No Known Allergies Allergy Unverified 01/08/17 23:13 - Medications Medications: Current Medications Acetaminophen (Tylenol 325mg Tab) 650 mg PO Q6 PRN PRN Reason: PAIN, MILD (1-3) Heparin Sodium (Porcine) (Heparin) 5,000 units SC Q8 [facility] Last Admin: 01/11/17 14:30 Dose: 5,000 units Sodium Chloride (Sodium Chloride 0.45%) 1,000 mls @ 100 mls/hr IV .Q10H [facility] Last Admin: 01/11/17 17:53 Dose: Not Given Insulin Glargine (Lantus) 15 unit SC DAILY [facility] Last Admin: 01/11/17 10:00 Dose: 15 unit Insulin Human Regular (Novolin R) 5 unit SC TIDAC [facility] Last Admin: 01/11/17 17:07 Dose: Not Given Insulin Human Regular (Novolin R) 0 unit SC ACHS [facility] PRN Reason: Protocol Last Admin: 01/11/17 17:07 Dose: Not Given Oxycodone/Acetaminophen (Percocet 5/325 Mg Tab) 1 tab PO Q4H PRN PRN Reason: Pain, moderate (4-7) Stop: 01/13/17 02:38 Last Admin: 01/11/17 11:33 Dose: 1 tab Pantoprazole Sodium (Protonix Ec Tab) 40 mg PO DAILY [facility] Last Admin: 01/11/17 10:00 Dose: 40 mg Physical Exam - Constitutional Appears: Non-toxic, Chronically Ill - Head Exam Head Exam: ATRAUMATIC, NORMAL INSPECTION, NORMOCEPHALIC - Eye Exam Eye Exam: PERRL. absent: Scleral icterus - ENT Exam ENT Exam: Mucous Membranes Dry, Normal External Ear Exam - Neck Exam Neck exam: Negative for: Lymphadenopathy - Respiratory Exam Respiratory Exam: Decreased Breath Sounds, Clear to Auscultation Bilateral - Cardiovascular Exam Cardiovascular Exam: REGULAR RHYTHM, +S1, +S2 - GI/Abdominal Exam GI & Abdominal Exam: Diminished Bowel Sounds, Soft. absent: Tenderness - Rectal Exam Rectal Exam: Deferred - Exam Exam: NORMAL INSPECTION - Extremities Exam Extremities exam: Positive for: pedal pulses present. Negative for: calf tenderness, pedal edema, tenderness - Back Exam Back exam: absent: CVA tenderness (L), CVA tenderness (R), paraspinal tenderness - Neurological Exam Neurological exam: Alert, CN II-XII Intact, Oriented x3, Reflexes Normal - Psychiatric Exam Psychiatric exam: Depressed - Skin Skin Exam: Dry Results - Vital Signs Recent Vital Signs: Last Vital Signs Temp 97.6 F 01/11/17 16:00 Pulse 94 H 01/11/17 16:08 Resp 16 01/11/17 16:08 BP 147/78 01/11/17 15:48 Pulse Ox 100 01/11/17 15:48 - Labs Result Diagrams: 01/11/17 06:19 01/11/17 06:19 Labs: Laboratory Results - last 24 hr 01/10/17 01/11/17 01/11/17 21:42 06:19 06:19 WBC 6.2 RBC 3.33 L Hgb 9.2 L Hct 28.4 L MCV 85.4 MCH 27.8 MCHC 32.5 L RDW 17.0 H Plt Count 302 MPV 7.6 Neut % (Auto) 66.4 Lymph % (Auto) 25.0 [place]ois % (Auto) 7.8 Eos % (Auto) 0.1 Baso % (Auto) 0.7 Neut # 4.1 Lymph # 1.6 Dubois # 0.5 Eos # 0.0 Baso # 0.0 Sodium 133 Potassium 4.8 Chloride 105 Carbon Dioxide 17 L Anion Gap 16 BUN 14 Creatinine 0.9 Est GFR ( Amer) > 60 Est GFR (Non-Af Amer) > 60 POC Glucose (mg/dL) 237 H Random Glucose 239 H Calcium 9.4 Phosphorus 3.6 Magnesium 1.4 L Total Bilirubin 0.6 AST 20 ALT 22 Alkaline Phosphatase 134 H Total Protein 6.6 Albumin 3.0 L Globulin 3.6 Albumin/Globulin Ratio 0.8 L 01/11/17 01/11/17 01/11/17 07:41 11:23 16:21 WBC RBC Hgb Hct MCV MCH MCHC RDW Plt Count MPV Neut % (Auto) Lymph % (Auto) [place] % (Auto) Eos % (Auto) Baso % (Auto) Neut # Lymph # [place]ois # Eos # Baso # Sodium Potassium Chloride Carbon Dioxide Anion Gap BUN Creatinine Est GFR ( Amer) Est GFR (Non-Af Amer) POC Glucose (mg/dL) 310 H 89 140 H Random Glucose Calcium Phosphorus Magnesium Total Bilirubin AST ALT Alkaline Phosphatase Total Protein Albumin Globulin Albumin/Globulin Ratio Assessment & Plan (1) Closed head injury Status: Acute (2) DKA (diabetic ketoacidosis) Status: Acute (3) Fall at prison Status: Acute (4) Hyperglycemia Status: Acute - Assessment and Plan (Free Text) Assessment: MDRO IN URINE LIKELY CRE MAY BE COLONIZED HOLD ANTIBIOTIC RX FOR JENNIFER IF FEVER OCCURS MAY NEED IV TYGACIL AND AMINOGLYCOSIDE
[2017-01-11] MEDS: Magnesium Sulfate 1 gm in D5W 1 GM/100 ML BAG IVPB SCH ×2 (19:47→20:05)
--- NOTE | 2017-01-11 20:31 | CP.PCM.PN ---
Subjective - Date & Time of Evaluation Date of Evaluation: 01/11/17 Time of Evaluation: 09:15 - Subjective Subjective: PGY-[address] Mcdaniel Patient seen and examined at bedside. Patient complains of left lower extremity pain throughout but especially in the left knee region. Patient denies fever, chills, chest pain, dyspnea, abdominal pain, dysuria. Objective - Vital Signs/Intake and Output Vital Signs (last 24 hours): Temp Pulse Resp BP Pulse Ox 97.6 F 94 H 16 147/78 100 01/11/17 16:00 01/11/17 16:08 01/11/17 16:08 01/11/17 15:48 01/11/17 15:48 Intake and Output: 01/11/17 01/12/17 18:59 06:59 Intake Total 1640 100 Output Total 150 250 Balance 1490 -150 - Medications Medications: Current Medications Acetaminophen (Tylenol 325mg Tab) 650 mg PO Q6 PRN PRN Reason: PAIN, MILD (1-3) Heparin Sodium (Porcine) (Heparin) 5,[address] [facility] Last Admin: 01/11/17 14:30 Dose: 5,000 units Sodium Chloride (Sodium Chloride 0.45%) 1,000 mls @ 100 mls/hr IV .Q10H [facility] Last Admin: 01/11/17 17:53 Dose: Not Given Magnesium Sulfate/Dextrose (Magnesium Sulfate 1 Gm/100 Ml D5w) 1 gm in 100 mls @ 100 mls/hr IVPB Q1H [facility] Stop: 01/11/17 20:59 Last Admin: 01/11/17 19:47 Dose: 100 mls/hr Insulin Glargine (Lantus) [address] [facility] Last Admin: 01/11/17 10:00 Dose: 15 unit Insulin Human Regular (Novolin R) [address] [facility] Last Admin: 01/11/17 17:07 Dose: Not Given Insulin Human Regular (Novolin R) 0 unit SC ACHS [facility] PRN Reason: Protocol Last Admin: 01/11/17 17:07 Dose: Not Given Oxycodone/Acetaminophen (Percocet 5/325 Mg Tab) 1 tab PO Q4H PRN PRN Reason: Pain, moderate (4-7) Stop: 01/13/17 02:38 Last Admin: 01/11/17 11:33 Dose: 1 tab Pantoprazole Sodium (Protonix Ec Tab) 40 mg PO DAILY [facility] Last Admin: 01/11/17 10:00 Dose: 40 mg - Labs Labs: 01/11/17 06:19 01/11/17 06:19 - Constitutional Appears: No Acute Distress - Head Exam Head Exam: NORMOCEPHALIC - Eye Exam Eye Exam: EOMI, PERRL - ENT Exam ENT Exam: Mucous Membranes Moist - Respiratory Exam Respiratory Exam: Clear to Ausculation Bilateral. absent: Rales, Rhonchi, Wheezes - Cardiovascular Exam Cardiovascular Exam: REGULAR RHYTHM, +S1, +S2 - GI/Abdominal Exam GI & Abdominal Exam: Soft, Tenderness (mild diffuse tenderness. moderate suprapubic tenderness.), Mass, Normal Bowel Sounds - Extremities Exam Extremities Exam: Pedal Edema (trace bilateral). absent: Calf Tenderness Additional comments: Left plantarflexion contracture Ulnar deviation of left hand fingers - Back Exam Back Exam: absent: CVA tenderness (L), CVA tenderness (R) - Neurological Exam Neurological Exam: Alert, Awake - Psychiatric Exam Psychiatric exam: Normal Affect, Normal Mood - Skin Skin Exam: Dry, Warm Assessment and Plan - Assessment and Plan (Free Text) Plan: DKA (diabetic ketoacidosis) glucose 602 on admission; anion gap 17; pH 7.22; HCO3 8.8 In ED Novolin 16u, Potassium 20 meq, Normal Saline 2L given Insulin drip started Half NS at 500 cc/hr started Ciprofloxacin 400mg ivpb once accucheck kept NPO until anion gap and glucose trended toward normal. Insulin drip D/C on 01/10. Once normal, downgraded to telemetry. * Lantus 15 SC daily * RISS * Regular Insulin 5 units TIDAC Klebsiella Pneumonia UTI Patient currently asymptomatic and with unremarkable UA however urine cultures detected multi-drug resistant organism in urine. Isolation contact precaution. Dr. Wilson ID consulted, help appreciated. Dr. Wilson thinks that this is a likely contaminant. He advises no antibiotic therapy for now unless fever occurs. He also believes that a repeat UA with cultures is not necessary unless fever occurs. Musculoskeletal Pain Right hand X-ray, Left Hip Xray, Left fib/tib Xray: No evidence of fractures Percocet 1 Tab Q4H for pain control ( Moderate Pain) Tylenol 650mg PO Q6 PRN ( Mild pain control) Closed head injury CT Head shows No intracranial hemorrhage Prophylactic measure Protonix 40 mg PO daily Heparin 5000 units SC Q8H PT/OT NS at 100 cc/hr OOB to chair Heart Healthy Diet
[2017-01-12] MEDS: Sodium Chloride 0.45% 1,000 ML IV SCH ×2 (03:00→13:00)
[2017-01-12 05:24] LABS: VENOUS BLOOD GAS BASE EXCESS -6.6 mmol/L (0.0-2.0); VENOUS BLOOD GAS PCO2 29 mmHg (40-60); VENOUS BLOOD PH 7.38 (7.32-7.43)
[2017-01-12 05:56] VITALS: O2SAT 98
[2017-01-12 06:18] LABS: BASO % 0.5 % (0.0-2.0); HEMATOCRIT 26.7 % (34.0-47.0); LYMPH # 1.1 K/uL (1.0-4.3); LYMPH % 19.3 % (20.0-40.0); MEAN CELL VOLUME 84.7 fL (81.0-99.0); MEAN CORPUSCULAR HEMOGLOBIN 28.5 pg (27.0-31.0); MEAN CORPUSCULAR HGB CONC 33.6 g/dL (33.0-37.0); MEAN PLATELET VOLUME 7.8 fL (7.2-11.7); MONO # 0.5 K/uL (0.0-0.8); MONO % 9.4 % (0.0-10.0); NRBC % 0.1 % (0.0-2.0); RED CELL DISTRIBUTION WIDTH 15.9 % (11.5-14.5); WHITE BLOOD COUNT 5.7 K/uL (4.8-10.8)
[2017-01-12 06:33] LABS: CHLORIDE 105 mmol/L (98-107); SODIUM 135 mmol/L (132-148)
[2017-01-12 06:34] LABS: POTASSIUM 4.1 mmol/L (3.6-5.2)
[2017-01-12 06:35] LABS: GFR AFRICAN-AMERICAN > 60
[2017-01-12 06:36] LABS: ALB/GLOB RATIO 0.8 (1.0-2.1); ALKALINE PHOSPHATASE 151 U/L (38-126); ALT/SGPT 30 U/L (9-52); AST/SGOT 42 U/L (14-36); BILIRUBIN,TOTAL 0.3 mg/dL (0.2-1.3); BLOOD UREA NITROGEN 13 mg/dL (7-17); CARBON DIOXIDE 19 mmol/L (22-30); PHOSPHOROUS 4.3 mg/dL (2.5-4.5); TOTAL PROTEIN 6.2 g/dL (6.3-8.3)
[2017-01-12 06:37] LABS: CALCIUM 9.1 mg/dl (8.6-10.4); MAGNESIUM 2.2 mg/dL (1.6-2.3)
[2017-01-12 06:50] LABS: GLUCOSE,RANDOM 31 mg/dL (65-105)
[2017-01-12] MEDS: (Novolin R) Insulin Human Regular 100 units/ml vial SC SCH ×5 (07:53→17:19)
--- NOTE | 2017-01-12 09:13 | CP.PCM.PN ---
Objective - Vital Signs/Intake and Output Vital Signs (last 24 hours): Temp Pulse Resp BP Pulse Ox 97 F L 78 17 108/59 L 98 01/12/17 02:57 01/12/17 05:55 01/12/17 05:55 01/12/17 05:55 01/12/17 05:55 Intake and Output: 01/12/17 01/12/17 06:59 18:59 Intake Total 100 Output Total 250 Balance -150 - Medications Medications: Current Medications Acetaminophen (Tylenol 325mg Tab) 650 mg PO Q6 PRN PRN Reason: PAIN, MILD (1-3) Sodium Chloride (Sodium Chloride 0.45%) 1,000 mls @ 100 mls/hr IV .Q10H [facility] Last Admin: 01/12/17 03:00 Dose: 100 mls/hr Insulin Glargine (Lantus) 15 unit SC DAILY [facility] Last Admin: 01/11/17 10:00 Dose: 15 unit Insulin Human Regular (Novolin R) 5 unit SC TIDAC [facility] Last Admin: 01/12/17 07:53 Dose: Not Given Insulin Human Regular (Novolin R) 0 unit SC ACHS [facility] PRN Reason: Protocol Last Admin: 01/12/17 07:53 Dose: Not Given Oxycodone/Acetaminophen (Percocet 5/325 Mg Tab) 1 tab PO Q4H PRN PRN Reason: Pain, moderate (4-7) Stop: 01/13/17 02:38 Last Admin: 01/11/17 11:33 Dose: 1 tab Pantoprazole Sodium (Protonix Ec Tab) 40 mg PO DAILY [facility] Last Admin: 01/11/17 10:00 Dose: 40 mg - Labs Labs: 01/12/17 06:11 01/12/17 06:11
[2017-01-12] MEDS: Pantoprazole 40 mg EC Tab PO SCH (09:21)
[2017-01-12 10:02] VITALS: BP 153/77; RESP 18; TEMP 98
--- NOTE | 2017-01-12 11:51 | CP.PCM.DIS ---
Provider - Provider Date of Admission: 01/09/17 04:21 Attending physician: Elia Mcdaniel Jr, MD Time Spent in preparation of Discharge (in minutes): 55 Hospital Course - Lab Results Lab Results: Micro Results 01/09/17 04:59 Nose MRSA Culture (Admit) - Final 01/08/17 23:39 Urine Urine Culture - Final Klebsiella Pneumoniae Ssp Pneu Most Recent Lab Values WBC 5.7 K/uL (4.8-10.8) 01/12/17 06:11 RBC 3.15 Mil/uL (3.80-5.20) L 01/12/17 06:11 Hgb 9.0 g/dL (11.0-16.0) L 01/12/17 06:11 Hct 26.7 % (34.0-47.0) L 01/12/17 06:11 MCV 84.7 fL (81.0-99.0) 01/12/17 06:11 MCH 28.5 pg (27.0-31.0) 01/12/17 06:11 MCHC 33.6 g/dL (33.0-37.0) 01/12/17 06:11 RDW 15.9 % (11.5-14.5) H 01/12/17 06:11 Plt Count 282 K/uL (130-400) 01/12/17 06:11 MPV 7.8 fL (7.2-11.7) 01/12/17 06:11 Neut % (Auto) 70.8 % (50.0-75.0) 01/12/17 06:11 Lymph % (Auto) 19.3 % (20.0-40.0) L 01/12/17 06:11 Miller % (Auto) 9.4 % (0.0-10.0) 01/12/17 06:11 Eos % (Auto) 0.0 % (0.0-4.0) 01/12/17 06:11 Baso % (Auto) 0.5 % (0.0-2.0) 01/12/17 06:11 Neut # 4.1 K/uL (1.8-7.0) 01/12/17 06:11 Lymph # 1.1 K/uL (1.0-4.3) 01/12/17 06:11 Miller # 0.5 K/uL (0.0-0.8) 01/12/17 06:11 Eos # 0.0 K/uL (0.0-0.7) 01/12/17 06:11 Baso # 0.0 K/uL (0.0-0.2) 01/12/17 06:11 Puncture Site Na 01/12/17 05:20 pCO2 25 mm/Hg (35-45) L 01/09/17 19:10 pO2 39 mm/Hg (30-55) 01/12/17 05:20 HCO3 15.0 mmol/L (21-28) L 01/09/17 19:10 ABG pH 7.30 (7.35-7.45) L 01/09/17 19:10 ABG Total CO2 13.1 mmol/L (22-28) L 01/09/17 19:10 ABG O2 Saturation 98.4 % (95-98) H 01/09/17 19:10 ABG Base Excess -12.8 mmol/L (-2.0-3.0) L 01/09/17 19:10 ABG Hemoglobin 7.5 g/dL (11.7-17.4) L 01/09/17 19:10 ABG Carboxyhemoglobin 1.4 % (0.5-1.5) 01/09/17 19:10 POC ABG HHb (Measured) 1.6 % (0.0-5.0) 01/09/17 19:10 ABG Methemoglobin 0.8 % (0.0-3.0) 01/09/17 19:10 Parminder Test Na 01/12/17 05:20 VBG pH 7.38 (7.32-7.43) 01/12/17 05:20 VBG pCO2 29 mmHg (40-60) L 01/12/17 05:20 VBG HCO3 19.1 mmol/L 01/12/17 05:20 VBG Total CO2 19.1 mmol/L (22-28) L 01/08/17 00:30 VBG O2 Sat (Calc) 90.4 % (40-65) H 01/08/17 00:30 VBG Base Excess -6.6 mmol/L (0.0-2.0) L 01/12/17 05:20 VBG Potassium 4.7 mmol/L (3.6-5.2) 01/08/17 00:30 Hgb O2 Saturation 96.2 % (95.0-98.0) 01/09/17 19:10 Sodium 131.0 mmol/l (132-148) L 01/08/17 00:30 Chloride 104.0 mmol/L (98-107) 01/08/17 00:30 Glucose 602 mg/dl (65-105) H* 01/08/17 00:30 Lactate 0.6 mmol/L (0.7-2.1) L 01/08/17 00:30 Liter Flow 21.0 01/09/17 02:40 Blood Gas Comments Pco2 10 01/09/17 02:40 Crit Value Called To Allyson horowitz er 01/09/17 02:40 Crit Value Called By Jonah villanueva 01/09/17 02:40 Crit Value Read Back Y 01/09/17 02:40 Blood Gas Notified Time 255 01/09/17 02:40 Sodium 135 mmol/L (132-148) 01/12/17 06:11 Potassium 4.1 mmol/L (3.6-5.2) 01/12/17 06:11 Chloride 105 mmol/L (98-107) 01/12/17 06:11 Carbon Dioxide 19 mmol/L (22-30) L 01/12/17 06:11 Anion Gap 15 (10-20) 01/12/17 06:11 BUN 13 mg/dL (7-17) 01/12/17 06:11 Creatinine 1.0 MG/DL (0.7-1.2) 01/12/17 06:11 Est GFR ( Amer) > 60 01/12/17 06:11 Est GFR (Non-Af Amer) 58 01/12/17 06:11 POC Glucose (mg/dL) 80 mg/dL (65-110) 01/12/17 06:54 Random Glucose 31 mg/dL (65-105) L* D 01/12/17 06:11 Hemoglobin A1c 9.1 % (4.2-6.5) H 01/09/17 19:15 Calcium 9.1 mg/dl (8.6-10.4) 01/12/17 06:11 Phosphorus 4.3 mg/dL (2.5-4.5) 01/12/17 06:11 Magnesium 2.2 mg/dL (1.6-2.3) 01/12/17 06:11 Total Bilirubin 0.3 mg/dL (0.2-1.3) 01/12/17 06:11 AST 42 U/L (14-36) H D 01/12/17 06:11 ALT 30 U/L (9-52) 01/12/17 06:11 Alkaline Phosphatase 151 U/L (38-126) H 01/12/17 06:11 Total Creatine Kinase < 20 U/L (30-135) L 01/09/17 19:15 CK-MB (Mass) 0.82 ng/mL (0.0-3.38) 01/09/17 19:15 Troponin I, Quant 0.0280 ng/mL (0.00-0.120) 01/09/17 19:15 Total Protein 6.2 g/dL (6.3-8.3) L 01/12/17 06:11 Albumin 2.7 g/dL (3.5-5.0) L 01/12/17 06:11 Globulin 3.5 gm/dL (2.2-3.9) 01/12/17 06:11 Albumin/Globulin Ratio 0.8 (1.0-2.1) L 01/12/17 06:11 Venous Blood Potassium 4.7 mmol/L (3.6-5.2) 01/08/17 00:30 Urine Color Straw (YELLOW) 01/08/17 23:39 Urine Clarity Clear (Clear) 01/08/17 23:39 Urine pH 5.0 (5.0-8.0) 01/08/17 23:39 Ur Specific [place] 1.006 (1.003-1.030) 01/08/17 23:39 Urine Protein Negative mg/dL (NEGATIVE) 01/08/17 23:39 Urine Glucose (UA) 3+ mg/dL (Normal) H 01/08/17 23:39 Urine Ketones Negative mg/dL (NEGATIVE) 01/08/17 23:39 Urine Blood Negative (NEGATIVE) 01/08/17 23:39 Urine Nitrate Negative (NEGATIVE) 01/08/17 23:39 Urine Bilirubin Negative (NEGATIVE) 01/08/17 23:39 Urine Urobilinogen Normal mg/dL (0.2-1.0) 01/08/17 23:39 Ur Leukocyte Esterase 1+ Lauryn/uL (Negative) H 01/08/17 23:39 Urine WBC (Auto) 20 /hpf (0-5) H 01/08/17 23:39 Urine RBC (Auto) 1 /hpf (0-3) 01/08/17 23:39 Urine Bacteria Rare (<OCC) 01/08/17 23:39 Serum Ketones Moderate (NEGATIVE) 01/09/17 00:19 - Hospital Course Hospital Course: Upon Admission: 51 yo F with a PMHx of DM, Anemia, HTN, Hyperlipidemia, Seizures, was brought in from [facility] due to fall in shower with closed head injury and sprained ankle. In ED patient was found to be in DKA. Patient is a very poor historian, baseline function unknown. She was very lethargic and kept closing her eyes every few seconds. Possible delerium secondary to DKA with waxing and waning mentation. ROS and history could not be obtained due to patients mental status. No prior records in chart. Throughout Hospital Course: Patient was admitted due to mechanical fall. When she was seen in the ED, she was in DKA. (1) DKA (diabetic ketoacidosis) Assessment and Plan: glucose 602 on admission; anion gap 17; pH 7.22; HCO3 8.8; precipitant currently unknown In ED Novolin 16u, Potassium 20 meq, Normal Saline 2L given Insulin drip started Half NS at 500 cc/hr started Ciprofloxacin 400mg ivpb once; As per ID: Dr. Wilson: MDRO IN URINE LIKELY MAY BE COLONIZED HOLD ANTIBIOTIC RX FOR NOW accucheck kept NPO until anion gap was closed and glucose trend toward normal Status: Acute (2) Closed head injury Assessment and Plan: CT Head shows No intracranial hemorrhage Status: Acute (3) Prophylactic measure Assessment and Plan: GI: not indicated DVT: SCDs, will hold off on anticoagulation for now due to head trauma Status: Acute This is a brief summary of the patient's hospital course, please review EMR for full record. Discharge Exam - Head Exam Head Exam: NORMOCEPHALIC - Additional Findings Additional findings: - Constitutional Appears: No Acute Distress - Head Exam Head Exam: NORMOCEPHALIC - Eye Exam Eye Exam: EOMI, PERRL - ENT Exam ENT Exam: Mucous Membranes Moist - Respiratory Exam Respiratory Exam: Clear to Ausculation Bilateral. absent: Rales, Rhonchi, Wheezes - Cardiovascular Exam Cardiovascular Exam: REGULAR RHYTHM, +S1, +S2 - GI/Abdominal Exam GI & Abdominal Exam: Soft, Tenderness (mild diffuse tenderness. moderate suprapubic tenderness.), Mass, Normal Bowel Sounds - Extremities Exam Extremities Exam: Pedal Edema (trace bilateral). absent: Calf Tenderness Additional comments: Left plantarflexion contracture Ulnar deviation of left hand fingers - Back Exam Back Exam: absent: CVA tenderness (L), CVA tenderness (R) - Neurological Exam Neurological Exam: Alert, Awake - Psychiatric Exam Psychiatric exam: Normal Affect, Normal Mood - Skin Skin Exam: Dry, Warm Discharge Plan - Follow Up Plan Condition: GOOD Disposition: NURSING FACILITY MEDICAID CERT Instructions: Diabetic Ketoacidosis (DC), Diabetic Ketoacidosis (GEN) Additional Instructions: Patient is to continue medications as listed in the medicine reconciliation. Please return to the hospital if her symptoms worsen or return. As per Dr. Mcdaniel, patient is safe for discharge back to [facility].
[2017-01-12] MEDS: Mupirocin 2% Ointment (NASAL) NAS SCH ×2 (12:58→17:19)
[2017-01-12] MEDS: Oxycodone/Acetaminophen 5/325 mg Tab PO PRN (13:40)
--- NOTE | 2017-01-12 14:07 | CP.PCM.PN ---
Subjective - Date & Time of Evaluation Date of Evaluation: 01/12/17 Time of Evaluation: 10:00 - Subjective Subjective: IMPROVING AFEBRILE Objective - Vital Signs/Intake and Output Vital Signs (last 24 hours): Temp Pulse Resp BP Pulse Ox 98.0 F 85 18 153/77 H 98 01/12/17 07:30 01/12/17 12:00 01/12/17 07:30 01/12/17 07:30 01/12/17 07:30 Intake and Output: 01/12/17 01/12/17 06:59 18:59 Intake Total 100 Output Total 250 Balance -150 - Medications Medications: Current Medications Acetaminophen (Tylenol 325mg Tab) 650 mg PO Q6 PRN PRN Reason: PAIN, MILD (1-3) Sodium Chloride (Sodium Chloride 0.45%) 1,000 mls @ 100 mls/hr IV .Q10H [facility] Last Admin: 01/12/17 13:00 Dose: 100 mls/hr Insulin Human Regular (Novolin R) 0 unit SC ACHS [facility] PRN Reason: Protocol Last Admin: 01/12/17 12:30 Dose: Not Given Mupirocin (Bactroban 2% Nasal) 0.5 gm RUTHANN BID [facility] Last Admin: 01/12/17 12:58 Dose: 0.5 gm Oxycodone/Acetaminophen (Percocet 5/325 Mg Tab) 1 tab PO Q4H PRN PRN Reason: Pain, moderate (4-7) Stop: 01/13/17 02:38 Last Admin: 01/12/17 13:40 Dose: 1 tab Pantoprazole Sodium (Protonix Ec Tab) 40 mg PO DAILY [facility] Last Admin: 01/12/17 09:21 Dose: 40 mg - Labs Labs: 01/12/17 06:11 01/12/17 06:11 - Constitutional Appears: Non-toxic, Chronically Ill - Head Exam Head Exam: NORMOCEPHALIC - Eye Exam Eye Exam: PERRL - ENT Exam ENT Exam: Mucous Membranes Dry - Neck Exam Neck Exam: absent: Lymphadenopathy - Respiratory Exam Respiratory Exam: Decreased Breath Sounds - Cardiovascular Exam Cardiovascular Exam: REGULAR RHYTHM - GI/Abdominal Exam GI & Abdominal Exam: Distended, Soft - Rectal Exam Rectal Exam: Deferred - Exam Exam: NORMAL INSPECTION Assessment and Plan (1) Closed head injury Status: Acute (2) DKA (diabetic ketoacidosis) Status: Acute (3) Fall at long term Status: Acute (4) Hyperglycemia Status: Acute
[2017-01-12 18:34] VITALS: PULSE 84
--- NOTE | 2017-01-12 19:47 | CARD ---
APPROVED REPORT EKG Measurement Heart [id number] <Conclusion> Sinus tachycardia Possible LVH
== END 2017-01-12 17:56 | DRG 294 ==
LOC: C.ER 22:38 → C.9E 01-09 04:21 → C.9I 01-09 04:46 → C.5S 01-12 06:14
PROVIDERS: ADMIT Internal Medicine; ATTEND Internal Medicine
DX: E13.10 Other specified diabetes mellitus with ketoacidosis without coma (principal); R56.9 Unspecified convulsions; S09.90XA Unspecified injury of head, initial encounter; I10 Essential (primary) hypertension; D64.9 Anemia, unspecified; S93.402A Sprain of unspecified ligament of left ankle, initial encounter; E78.5 Hyperlipidemia, unspecified; M06.9 Rheumatoid arthritis, unspecified; Z79.4 Long term (current) use of insulin; Y93.E1 Activity, personal bathing and showering; Y92.121 Bathroom in nursing home as the place of occurrence of the external cause; W18.2XXA Fall in (into) shower or empty bathtub, initial encounter; Z87.440 Personal history of urinary (tract) infections